=== PATIENT | female | born 2005 | race Caucasian/White ===

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

== ENCOUNTER 2023-05-16 10:45 | Emergency (ER) | payer OTHER, SELFPAY ==
--- NOTE | ~2023-05-16 | US_ITS ---
EXAMINATION:US OB pelvic and transvaginal CLINICAL INFORMATION: Reason for Exam +hcg test, suprapubic cramping COMPARISON: No priors available. LMP: Unknown FINDINGS: UTERUS: The uterus is anteverted. Uterine mass: Intramural uterine mass likely fibroid 2.7 x 2.1 x 2.2 cm. Cervix: Echogenic focus in the cervix to millimeter probably calcification. Endometrium: No ultrasound evidence of endometrial lesion. endometrial thickness measures 0.7 ADNEXA: Normal Right ovary: There is a complex heterogeneously echogenic probably hemorrhagic cyst in the right ovary 2.2 x 2.1 x 2.3 cm, there is a adnexal cyst 1.6 x 1.1 x 1.2 cm. Left ovary: There is a dominant follicle in the left ovary 1.6 x 1.2 x 1.5 cm. Doppler exam: Normal Doppler flow identified in both ovaries. FREE FLUID: Trace amount of free fluid. OTHER FINDINGS: None US/US OB pelvic and transvaginal IMPRESSION: * No intrauterine gestational sac . Although no direct ectopic visualized, Cannot rule out ectopic in the right clinical setting. * Intramural uterine mass likely fibroid 2.7 cm. *Mildly complex cystic structure in the right ovary 2.3 cm might be involuting and/or hemorrhagic cyst. Would recommend correlation with follow-up ultrasound in 6 weeks.
[2023-05-16 11:00] VITALS: BP 127/85; PULSE 83; RESP 18; TEMP 36.4; O2SAT 98; BMI 37.9
[2023-05-16 12:11] LABS: Appearance Urine Clear; Color Urine Yellow; Glucose Urine UA Negative (Negative); Leukocyte Esterase Urine Trace (Negative); Nitrite Urine Negative (Negative); UMIC TRIGGER UACC YES; Urine Blood Negative (Negative); Urine Ketones Negative (Negative); Urine Protein Negative (Neg-Trace)
[2023-05-16 12:13] LABS: Bacteria Urine 2+ (None Seen); Hyaline Casts Urine 0-2 /LPF (0-2); RBC Urine 0-2 /HPF (0-2); UACC Culture Trigger YES
[2023-05-16 12:14] LABS: UPreg QC Valid YES; Urine Pregnancy POSITIVE (NEGATIVE)
[2023-05-16 12:17] LABS: Specific Gravity - Urine >= 1.030 (1.005-1.025)
--- NOTE | 2023-05-16 12:17 | ED_ITS ---
HPI - General Adult General Chief complaint: Abdominal Pain Stated complaint: cramping quest Time Seen by Provider: 05/16/23 11:11 Source: patient and old records reviewed Mode of arrival: ambulatory Limitations: no limitations History of Present Illness HPI narrative: This is a 17-year-old female, , presenting to the emergency department with question for . Patient states that she started to have intermittent lower abdominal cramping and nausea yesterday. She took a test at [facility] which was positive. Patient denies any fevers, chills, vomiting. She admits to having some dysuria as well as urinary urgency and frequency. She has never been before. Denies vaginal discharge or bleeding. No other complaints or concerns at this time. complaint: +At home test Relieving factors: none Exacerbating factors: none Associated symptoms: nausea/vomiting Treatments prior to arrival: none Related Data Previous Rx's Medication Instructions Recorded albuterol sulfate 90 mcg/actuation 2 puff inhalation Q4-6H PRN 08/27/22 aerosol inhaler shortness of breath or wheezing #8.5 grams vit no.95-ferrous 1 tab PO DAILY #30 tabs 05/16/23 fumarate 28 mg-folic acid 800 mcg tablet ( Multivitamins) Allergies Allergy/AdvReac Type Severity Reaction Status Date / Time No Known Allergies Allergy Verified 10/01/22 14:39 Review of Systems Review of Systems: Yes all other systems are reviewed and are negative Constitutional: Constitutional: Reports as per [facility] Past Medical History Attestation statement: The following information was validated with the patient. Social History Social History Current occupational status: unemployed Current occupation: left hand dominant Physical Exam ED Vital Signs: Vital Signs - 24 hr 05/16/23 11:00 Temperature 97.6 F Pulse Rate 83 Respiratory Rate 18 Blood Pressure 127/85 Pulse Oximetry 98 Oxygen Delivery Method Room Air BMI result Body Mass Index 37.9 Const General: cooperative, comfortable and no acute distress Orientation/consciousness: patient oriented x3 Limitations: no limitations HENMT Head: Yes normal to inspection, Yes normocephalic and Yes atraumatic Ears: hearing grossly normal bilaterally General nose exam: Normal external nose present Face and sinus: Yes normal facial exam Mouth: Normal oral and palatal mucosa present, oropharynx normal and moist mucous membranes Throat: Yes posterior oropharynx normal Eyes General: appearance normal, both eyes and all related structures Eyelids: Yes eyelids normal Conjunctivae: conjunctivae normal Sclerae: sclerae normal Pupils: Equal, round and reactive pupils present EOM: EOMs intact bilaterally Neck Neck: Yes normal visual inspection, Yes full ROM and Yes no lymphadenopathy Lymphatic: no lymphadenopathy noted Chest Chest palpation & inspection: normal inspection of the chest Resp Effort & Inspection: normal respiratory effort and able to speak in complete sentences Auscultation: clear to auscultation bilaterally, no crackles, no rales, no rhonchi and no wheezes Cardio Rate: regular rate Rhythm: regular rhythm Heart sounds: S1 normal heart sound present and S2 normal heart sound present GI Other: Abdomen is soft, nontender, nondistended. No rebound or guarding. Inspection: Yes normal to inspection Skin General skin exam: no rashes or lesions noted Trauma: no lacerations or abrasions Wounds: no wounds Neuro General: patient oriented x3 and moves all extremities Cranial nerves: Yes Equal, round and reactive pupils present Extrem General: Yes normal to inspection Right upper extremity: normal to inspection Left upper extremity: normal to inspection Right lower extremity: normal to inspection Left lower extremity: normal to inspection Course Reevaluation(s) Reevaluation #1: Urine hCG was positive. Basic labs and beta quant ordered. Ultrasound to confirm intrauterine ordered. Reevaluation #2: Beta quant is 91, pelvic ultrasound revealing no intra uterine gestational sac. No direct ectopic pregnancies visualize however cannot rule out ectopic in the right clinical setting. Intramural uterine mass likely fibroid 2.7 cm. There is also a mildly complex cystic structure in the right ovary 2.3 cm, suggesting involuting and/or hemorrhagic cyst, recommending follow-up ultrasound in 6 weeks. Discussed case with Dr. Noe OBMIRIAM, who reports that that fragile diagnosis these include early IUP versus ectopic. He recommends repeat hCG in 48 hours and to follow-up in his office then. Patient given spontaneous miscarriage an ectopic warnings to patient and to return to the emergency department with any vaginal bleeding, pelvic or abdominal pain. Discussed with patient at bedside, who reports good understanding. Patient given lab requisition to have blood work of hCG quantitative levels checked in 2 days. Also placed in computer for order. Patient will be following up with doctors Rahul. Advised to call their office on Thursday morning. Patient understands and agrees with plan. Time: 15:28 Medical Decision Making Medical Decision Making MDM Narrative: 17-year-old female presenting to the emergency department for evaluation of positive at home test. She has had suprapubic cramping intermittently. Also endorsing urinary frequency, urgency, and dysuria. Clinical suspicion for /UTI. Patient's abdomen is soft, nontender, nondistended. Plan: UA, urine test Differential Diagnosis Differential Diagnoses: The differential diagnosis associated with the presentation includes , ectopic , appendicitis-un likely urinary tract infection, pyelonephritis Admission/Observation Consideration of admission/observation: Escalation of care including admission/observation considered Patient would have been admitted to the hospital had her work up had any findings where hospital admission was appropriate and her clinical presentation warranted hospital admission. 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 Noe Lab Data [facility] Lab Attestation statement: I reviewed the patient's lab results. See above 05/16/23 12:47 05/16/23 12:47 Labs: Lab Results 05/16/23 05/16/23 05/16/23 Range/Units 12:01 12:01 12:01 WBC (4.8-10.8) X10*3/uL RBC (4.20-5.50) X10*6/uL Hgb (12.0-16.0) g/dl Hct (37.0-47.0) % MCV (80.0-98.0) fL MCH (27.0-33.0) pg MCHC (31.0-35.0) g/dl RDW (11.0-16.0) % Plt Count (160-400) X10*3/uL MPV (9.4-12.3) fL Immature Gran % (Auto) (0.0-0.4) % Neut % (Auto) (45-73) % Lymph % (Auto) (20-40) % Nicholas % (Auto) (2-11) % Eos % (Auto) (0-4) % Baso % (Auto) (0-2) % Lymph # (Auto) (1.2-4.9) X10*3/uL Nicholas # (Auto) (0.1-1.2) X10*3/uL Eos # (Auto) (0.0-0.4) X10*3/uL Baso # (Auto) (0.0-0.2) X10*3/uL Abs Immat Gran (auto) (0.00-0.03) X10*3/uL Absolute Neuts (auto) (2.0-8.3) x10*3/uL Absolute Nucleated RBC (0.0-0.012) X10*3/uL Nucleated RBC % (auto) (0.0-0.2) /100WBC Sodium (135-145) mmol/L Potassium (3.3-5.1) mmol/L Chloride (96-108) mmol/L Carbon Dioxide (22-29) mmol/L Anion Gap (12-20) BUN (9-16) mg/dL Creatinine (0.5-1.4) mg/dL Estim Creat Clear Calc Estimated GFR Random Glucose (60-115) mg/dL Calcium (8.4-10.2) mg/dL Beta HCG, Quant mIU/mL Urine Color Yellow Cancelled Urine Appearance Clear Cancelled Urine pH 6.0 Cancelled (5.0-9.0) Ur Specific [place] >= 1.030 H Cancelled (1.005-1.025) Urine Protein Negative Cancelled (Neg-Trace) mg/dL Urine Glucose (UA) Negative Cancelled (Negative) mg/dL Urine Ketones Negative Cancelled (Negative) mg/dL Urine Blood Negative Cancelled (Negative) Urine Nitrite Negative Cancelled (Negative) Ur Leukocyte Esterase Trace H Cancelled (Negative) Urine RBC 0-2 Cancelled (0-2) /HPF Urine WBC 6-10 H Cancelled (0-5) /HPF Urine WBC Clumps Cancelled Ur Squamous Epith Cells 11-20 Cancelled (0-2) /HPF Ur Transition Epith Cell Cancelled Ur Renal Epithelial Cell Cancelled Calcium Oxalate Crystal Cancelled Leucine Crystals Cancelled Cystine Crystals Cancelled Tyrosine Crystals Cancelled Other Crystals Cancelled Urine Bacteria 2+ Cancelled (None Seen) Urine Parasites Cancelled Bilirubin Casts Cancelled Epithelial Casts Cancelled Fatty Casts Cancelled Hyaline Casts 0-2 Cancelled (0-2) /LPF Granular Casts Cancelled Waxy Casts Cancelled Broad Casts Cancelled RBC Casts Cancelled WBC Casts Cancelled Other Casts Cancelled Urine Trichomonas Cancelled Urine Yeast Cancelled Urine Test POSITIVE H (NEGATIVE) 05/16/23 05/16/23 Range/Units 12:47 12:47 WBC 9.0 (4.8-10.8) X10*3/uL RBC 4.51 (4.20-5.50) X10*6/uL Hgb 13.1 (12.0-16.0) g/dl Hct 38.9 (37.0-47.0) % MCV 86.3 (80.0-98.0) fL MCH 29.0 (27.0-33.0) pg MCHC 33.7 (31.0-35.0) g/dl RDW 12.6 (11.0-16.0) % Plt Count 236 (160-400) X10*3/uL MPV 10.8 (9.4-12.3) fL Immature Gran % (Auto) 0.4 (0.0-0.4) % Neut % (Auto) 76.9 H (45-73) % Lymph % (Auto) 12.9 L (20-40) % Nicholas % (Auto) 6.9 (2-11) % Eos % (Auto) 2.6 (0-4) % Baso % (Auto) 0.3 (0-2) % Lymph # (Auto) 1.2 (1.2-4.9) X10*3/uL Nicholas # (Auto) 0.6 (0.1-1.2) X10*3/uL Eos # (Auto) 0.2 (0.0-0.4) X10*3/uL Baso # (Auto) 0.0 (0.0-0.2) X10*3/uL Abs Immat Gran (auto) 0.04 H (0.00-0.03) X10*3/uL Absolute Neuts (auto) 6.9 (2.0-8.3) x10*3/uL Absolute Nucleated RBC 0.000 (0.0-0.012) X10*3/uL Nucleated RBC % (auto) 0.0 (0.0-0.2) /100WBC Sodium 136 (135-145) mmol/L Potassium 4.1 (3.3-5.1) mmol/L Chloride 106 (96-108) mmol/L Carbon Dioxide 21 L (22-29) mmol/L Anion Gap 13 (12-20) BUN 13 (9-16) mg/dL Creatinine 0.73 (0.5-1.4) mg/dL Estim Creat Clear Calc 137.4 Estimated GFR > 60 Random Glucose 108 (60-115) mg/dL Calcium 9.3 (8.4-10.2) mg/dL Beta HCG, Quant 91 mIU/mL Urine Color Urine Appearance Urine pH (5.0-9.0) Ur Specific [place] (1.005-1.025) Urine Protein (Neg-Trace) mg/dL Urine Glucose (UA) (Negative) mg/dL Urine Ketones (Negative) mg/dL Urine Blood (Negative) Urine Nitrite (Negative) Ur Leukocyte Esterase (Negative) Urine RBC (0-2) /HPF Urine WBC (0-5) /HPF Urine WBC Clumps Ur Squamous Epith Cells (0-2) /HPF Ur Transition Epith Cell Ur Renal Epithelial Cell Calcium Oxalate Crystal Leucine Crystals Cystine Crystals Tyrosine Crystals Other Crystals Urine Bacteria (None Seen) Urine Parasites Bilirubin Casts Epithelial Casts Fatty Casts Hyaline Casts (0-2) /LPF Granular Casts Waxy Casts Broad Casts RBC Casts WBC Casts Other Casts Urine Trichomonas Urine Yeast Urine Test (NEGATIVE) Radiology Impression Discussion of test interpretation with radiology: I have reviewed the radiologist's reading. Radiologist Impression: EXAMINATION:US OB pelvic and transvaginal CLINICAL INFORMATION:? Reason for Exam +hcg test,? suprapubic cramping COMPARISON: No priors available. LMP: Unknown FINDINGS: UTERUS: The uterus is anteverted. Uterine mass: Intramural uterine mass likely fibroid 2.7 x 2.1 x 2.2 cm. Cervix: Echogenic focus in the cervix to millimeter probably calcification. Endometrium: No ultrasound evidence of endometrial lesion. endometrial thickness measures 0.7 ADNEXA: Normal Right ovary: There is a complex heterogeneously echogenic probably hemorrhagic cyst in the right ovary 2.2 x 2.1 x 2.3 cm, there is a adnexal cyst 1.6 x 1.1 x 1.2 cm. Left ovary: There is a dominant follicle in the left ovary 1.6 x 1.2 x 1.5 cm. Doppler exam: Normal Doppler flow identified in both ovaries. FREE FLUID: Trace amount of free fluid. OTHER FINDINGS: None US/US OB pelvic and transvaginal IMPRESSION: * No intrauterine gestational sac . Although no direct ectopic visualized, Cannot rule out ectopic in the right clinical setting. ? * Intramural uterine mass likely fibroid 2.7 cm. ? *Mildly complex cystic structure in the right ovary 2.3 cm might be involuting and/or hemorrhagic cyst. Would recommend correlation with follow-up ultrasound in 6 weeks. Dictated By: Sandy Murillo MD Signed By: <Electronically signed by Sandy Murillo MD in OV> Independent Historian Clinical information obtained from an independent historian. History obtained from or confirmed by: Friend Discharge Plan Discharge Clinical Impression: Patient Disposition: Home, Self-Care Instructions: (ED) Additional Instructions: Your urine test revealed you are . Your blood testing revealed a a beta quantative level of 91. Your ultrasound showed no intrauterine gestational sac. It is unclear whether not you were too early in to have this visualized. Please have your beta quantative level checked in 48 hours. I have placed an order in the computer system to have this done. You can go to the main desk at the [facility]. You do not need to come to the emergency room for this. Please follow-up with ANNIKA Wynn. Call his office on Thursday morning to make an appointment. If any new or worsening symptoms occur including but not limited to severe abdominal pain, fevers or chills, vaginal bleeding or abnormal vaginal discharge, please return for re-evaluation. Please take a vitamin. Prescriptions: New PNV cmb#95-ferrous fumarate-FA [ Multivitamins] 28 mg iron- 800 mcg tablet 1 tab PO DAILY Qty: 30 0RF No Action albuterol sulfate 90 mcg/actuation HFA aerosol inhaler 2 puff inhalation Q4-6H PRN (Reason: shortness of breath or wheezing) Qty: 8.5 0RF Interventions: ED Discharge Assessment Last Done: 05/16/23 16:13 Discharge Date/Time: 05/16/23 16:16
[2023-05-16 12:51] LABS: MANUAL DIFF FLAG NO
[2023-05-16 13:00] LABS: Basophils Percent Auto 0.3 % (0-2); Eosinophils Absolute Auto 0.2 X10*3/uL (0.0-0.4); Eosinophils Percent Auto 2.6 % (0-4); Hematocrit 38.9 % (37.0-47.0); Hemoglobin 13.1 g/dl (12.0-16.0); Imm Gran Abs Auto 0.04 X10*3/uL (0.00-0.03); Imm Gran Pct Auto 0.4 % (0.0-0.4); Lymphocytes Absolute Auto 1.2 X10*3/uL (1.2-4.9); Lymphocytes Percent Auto 12.9 % (20-40); Mean Corpuscular HGB Conc 33.7 g/dl (31.0-35.0); Mean Corpuscular Volume 86.3 fL (80.0-98.0); Mean Platelet Volume 10.8 fL (9.4-12.3); Monocytes Absolute Auto 0.6 X10*3/uL (0.1-1.2); Monocytes Percent Auto 6.9 % (2-11); Neutrophils Absolute Auto 6.9 x10*3/uL (2.0-8.3); Neutrophils Percent Auto 76.9 % (45-73); Platelet Count 236 X10*3/uL (160-400); Red Blood Count 4.51 X10*6/uL (4.20-5.50); Red Cell Distribution Width 12.6 % (11.0-16.0)
[2023-05-16 13:18] LABS: Anion Gap 13 (12-20); Blood Urea Nitrogen 13 mg/dL (9-16); Calcium 9.3 mg/dL (8.4-10.2); Carbon Dioxide 21 mmol/L (22-29); Chloride 106 mmol/L (96-108); Creatinine Clr Calc Pharmacy 137.4; Estimated Glomerular Filt Rate > 60; Glucose Random 108 mg/dL (60-115); Potassium 4.1 mmol/L (3.3-5.1); Sodium 136 mmol/L (135-145)
[2023-05-16 13:19] LABS: HCG Quantitative 91 mIU/mL
[2023-05-16 15:57] VITALS: BP 112/63; PULSE 73; RESP 18; TEMP 37; O2SAT 98
--- NOTE | 2023-05-16 18:13 | PM.GYNCN ---
CONFERENCE CENTER COORDINATOR - CN: HPI Data of Consult Consult date: 05/16/23 Primary Care Provider: None Physician Consult Narrative Narrative: Late entry note I was consulted at 15:25 on Rosie Nogueira who is a 17 year old female , presenting to the emergency department intermittent lower abdominal cramping and nausea yesterday.? The patient had a positive urine test at home yesterday. No associated vaginal bleeding, discharge or vomiting or any other GI or symptoms.? HCG done in the emergency room was 91 cc:: CC: OB [facility] Social History Social History Advance Directives: No Advance Directives Information Provided: No Current occupational status: unemployed Current occupation: left hand dominant Meds Allergies Allergy/AdvReac Type Severity Reaction Status Date / Time No Known Allergies Allergy Verified 10/01/22 14:39 CONFERENCE CENTER COORDINATOR Physical Exam Vitals Vital signs: Temp Pulse Resp BP Pulse Ox O2 Del Method 98.6 F 73 18 112/63 98 Room Air 05/16/23 15:57 05/16/23 15:57 05/16/23 15:57 05/16/23 15:57 05/16/23 15:57 05/16/23 15:57 BMI result Body Mass Index 37.9 Additional Comments: Reported by JABIER Handley in the emergency room as the following: Abdominal exam soft, nontender with stable vital signs CONFERENCE CENTER COORDINATOR - Results Labs 05/16/23 12:47 05/16/23 12:47 Labs: Short CBC 05/16/23 Range/Units 12:47 WBC 9.0 (4.8-10.8) X10*3/uL Hgb 13.1 (12.0-16.0) g/dl Hct 38.9 (37.0-47.0) % Plt Count 236 (160-400) X10*3/uL BMP 05/16/23 12:47 Sodium 136 Potassium 4.1 Chloride 106 Carbon Dioxide 21 L BUN 13 Creatinine 0.73 Calcium 9.3 Urine 05/16/23 05/16/23 05/16/23 Range/Units 12:01 12:01 12:01 Urine Color Yellow Cancelled Urine Appearance Clear Cancelled Urine pH 6.0 Cancelled (5.0-9.0) Ur Specific [place] >= 1.030 H Cancelled (1.005-1.025) Urine Protein Negative Cancelled (Neg-Trace) mg/dL Urine Glucose (UA) Negative Cancelled (Negative) mg/dL Urine Test POSITIVE H (NEGATIVE) Imaging US - abdomen: Radiologist's impression: ITS Impressions Pelvic/Transvag US 05/16/23 13:36 IMPRESSION: * No intrauterine gestational sac . Although no direct ectopic visualized, Cannot rule out ectopic in the right clinical setting. * Intramural uterine mass likely fibroid 2.7 cm. *Mildly complex cystic structure in the right ovary 2.3 cm might be involuting and/or hemorrhagic cyst. Would recommend correlation with follow-up ultrasound in 6 weeks. Assessment and Plan (1) Early stage of : Status: Acute Plan Discussed with Yesi EUGENE the following: Differential diagnosis includes early including IUP , ectopic or SAB. Recommended hCG in 48 hours with outpatient follow-up in our office. Instructions to be given the patient to come back to the emergency room in case of pelvic pain and or vaginal bleeding. SAB/ectopic warnings to be given to the patient. I spent a total of 20 minutes reviewing the chart, communicating to the emergency room provider and documenting in the medical record. Time Spent With Patient Time: Total time managing care of this patient today ____ minutes.
== END 2023-05-16 16:16 | disposition home or self-care (01) ==
PROVIDERS: Physician Assistant Medical; Emergency Provider Emergency Medicine
DX: O26.891 Other specified pregnancy related conditions, first trimester (principal); R10.30 Lower abdominal pain, unspecified; O34.81 Maternal care for other abnormalities of pelvic organs, first trimester; N83.291 Other ovarian cyst, right side; Z3A.01 Less than 8 weeks gestation of pregnancy
CPT/HCPCS: 36415; 76801; 76817; 80048; 81001; 81025; 84702; 85025; 87086; 99283; 99284

== ENCOUNTER → 2023-05-16 11:30 | Outpatient (BNV) | payer OTHER, SELFPAY | PROVIDERS: Emergency Provider Emergency Medicine; Visit Provider Obstetrics & Gynecology | DX: Z34.90 Encounter for supervision of normal pregnancy, unspecified, unspecified trimester (principal) | CPT/HCPCS: 99283 ==

== ENCOUNTER 2023-05-18 13:10 | Outpatient (REF) | payer OTHER, SELFPAY ==
[2023-05-18 15:42] LABS: HCG Quantitative 209 mIU/mL
== END 2023-05-18 13:11 | disposition home or self-care (01) ==
LOC: HO.LAB 13:10
PROVIDERS: Absent Provider Obstetrics & Gynecology; Visit Provider Physician Assistant Medical
DX: Z34.90 Encounter for supervision of normal pregnancy, unspecified, unspecified trimester (principal)
CPT/HCPCS: 36415; 84702

== ENCOUNTER 2023-05-19 07:41 | Outpatient (REF) | payer OTHER, SELFPAY ==
[2023-05-20 11:48] LABS: CT PCR NOT DETECTED (Not Detect.); NG PCR NOT DETECTED (Not Detect.)
== END 2023-05-19 07:42 | disposition home or self-care (01) ==
LOC: HO.LNP 07:41
PROVIDERS: Visit Provider Obstetrics & Gynecology
DX: Z34.90 Encounter for supervision of normal pregnancy, unspecified, unspecified trimester (principal)
CPT/HCPCS: 0353U; 99212

== ENCOUNTER 2023-05-19 07:41 | Outpatient (AMB) | payer OTHER, SELFPAY ==
[2023-05-19 07:50] VITALS: BP 120/82; BMI 33.3
--- NOTE | 2023-05-19 07:50 | A.OFFVIS_ITS ---
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 The patient is doing well with no complaints minimal pelvic cramping and vaginal bleeding. HCG done on 05/16 was 91 went up to 209 on 05/18. Pelvic ultrasound done on 05/16 showed the following: IMPRESSION: * No intrauterine gestational sac . Although no direct ectopic visualized, Cannot rule out ectopic in the right clinical setting. ? * Intramural uterine mass likely fibroid 2.7 cm. ? *Mildly complex cystic structure in the right ovary 2.3 cm might be involuting and/or hemorrhagic cyst. Would recommend correlation with follow-up ultrasound in 6 weeks. FORMERLY [facility], [facility] Medical History Asthma Surgical History H/O eye surgery Family History Mother Diabetes HTN (hypertension) Father Asthma Social History Household Members: Significant Other Household Members Other:: Boyfriend's family Housing: House Alcohol intake: never Patient Tobacco Use Status: Never used Tobacco Current occupational status: unemployed Current occupation: left hand dominant Sexually active: Yes Sexual orientation: Straight/Heterosexual Gender identity: Female Female Reproductive History Menstrual Age of Menarche: 10 Date of last menstrual period: 05/22/23 Review of Systems Const All systems reviewed & are unremarkable except as noted in HPI and below Reports as per HPI and Reports no additional complaints GI Reports no additional complaints Reports no additional complaints Physical Exam Vital Signs: Last Vital Signs BP 120/82 05/19/23 07:50 BMI result Body Mass Index 33.3 Assessment & Plan Assessment & Plan (1) Early stage of : Code(s): Z34.90 - Encounter for supervision of normal , unspecified, unspecified trimester Plan: GC/chlamydia collected. HCG Q 48 hours till it is above 3500 and will order an ultrasound to document intrauterine . SAB/ectopic warnings given to the patient, she is to go to emergency room or call in case pelvic pain and or bleeding. vitamin 1 tablet p.o. q.d. Orders: Orders CT NG by PCR Today Z34.90 - Encounter for supervision of normal , unspecified, unspecified trimester HCG Quantitative Today Z34.90 - Encounter for supervision of normal , unspecified, unspecified trimester HCG Quantitative 05/20/23 Z34.90 - Encounter for supervision of normal , unspecified, unspecified trimester HCG Quantitative 05/22/23 Z34.90 - Encounter for supervision of normal , unspecified, unspecified trimester HCG Quantitative 05/23/23 Z34.90 - Encounter for supervision of normal , unspecified, unspecified trimester US OB <= 14 wk fetus add gest 05/26/23 Z34.90 - Encounter for supervision of normal , unspecified, unspecified trimester Coding Level of Care Code Est Pt Level 3 (49069) Diagnoses Early stage of Z34.90
== END 2023-05-19 08:34 | disposition home or self-care (01) ==
LOC: HO.HWS 07:41
PROVIDERS: Visit Provider Obstetrics & Gynecology
DX: Z34.90 Encounter for supervision of normal pregnancy, unspecified, unspecified trimester (principal)
CPT/HCPCS: 99213

== ENCOUNTER 2023-05-26 12:18 | Outpatient (REF) | payer OTHER, SELFPAY ==
--- NOTE | ~2023-05-26 | US_ITS ---
EXAMINATION: US OBSTETRICAL ULTRASOUND CLINICAL INFORMATION: Supervision of early . COMPARISON: None available. LMP: Uncertain. Gestational age by maternal dates is uncertain. Estimated date of delivery by maternal dates is uncertain. TECHNIQUE: Ultrasound of the maternal pelvis is performed using transabdominal and transvaginal transducers. Transvaginal imaging is performed due to inadequate visualization transabdominally. M-mode Doppler is also performed. FINDINGS: There is a single intrauterine gestational sac with visible yolk sac. There is no pole or cardiac activity. There is no significant subchorionic hemorrhage or hematoma. Mean sac diameter: 0.75 cm (5 weeks and 3 days +/- 4 days). BARBARA (estimated date of delivery): 01/22/2023 +/- 4 days. MATERNAL ADNEXA: The right maternal ovary measures 4.0 x 3.3 x 3.8 cm. The right ovary contains a 2.8 x 2.4 x 2.7 cm hemorrhagic corpus luteum cyst. The left maternal ovary measures 3.2 x 2.3 x 1.7 cm. The left ovary contains a 1.4 cm in maximal diameter benign, simple cyst, which require no imaging follow-up. There is no significant maternal adnexal mass. A 1.6 cm in maximal diameter simple right paraovarian cyst is incidentally noted. No maternal pelvic ascites. US/US OB <= 14 weeks fetus IMPRESSION: 1. Single intrauterine gestational sac with estimated gestational age based upon mean sac diameter of 5 weeks and 3 days +/- 4 days. Yolk sac is seen No pole or heart rate is presently seen. 2. Estimated date of delivery based upon mean sac diameter measurement is 01/22/2023 +/- 4 days. Recommend short-term follow-up obstetrical ultrasound imaging for pole assessment and more accurate dating. 3. No pelvic ascites. 4. A 1.6 cm right paraovarian cyst is noted.
== END 2023-05-26 12:19 | disposition home or self-care (01) ==
LOC: HO.US 12:18
PROVIDERS: Visit Provider Obstetrics & Gynecology
DX: Z34.91 Encounter for supervision of normal pregnancy, unspecified, first trimester (principal); Z3A.01 Less than 8 weeks gestation of pregnancy
CPT/HCPCS: 76801; 99212

== ENCOUNTER 2023-05-26 13:37 | Outpatient (AMB) | payer OTHER, SELFPAY ==
--- NOTE | 2023-05-26 13:40 | A.OFFVIS_ITS ---
Intake Vital Signs 05/26/23 13:41 Height 5 ft 3 in Weight 189 lb BMI 33.5 BP 118/70 Intake Visit Reasons: Ultrasound follow up Human Factors Ergonomist Required: No Allergies No Known Allergies Allergy (Verified 05/26/23 13:42) Post menopausal: No Patient : Yes HPI HPI Comments History of Present Illness Details Presenting for follow-up ultrasound with no complaints no pelvic pain, no pressure or cramping , no vaginal bleeding or any other concerns. On vitamin 1 tablet p.o. q.d. ultrasound done today reports not available, preliminary report shows intrauterine gestational sac measuring 5 weeks and 3 days of gestation, with yolk sac and no fetus. REPLACED BY [facility] Medical History Asthma Surgical History H/O eye surgery Family History Mother Diabetes HTN (hypertension) Father Asthma Social History Household Members: Significant Other Household Members Other:: Boyfriend's family Housing: House Alcohol intake: never Patient Tobacco Use Status: Never used Tobacco Patient : Yes Current occupational status: unemployed Current occupation: left hand dominant Sexual orientation: Straight/Heterosexual Gender identity: Female Female Reproductive History Menstrual Age of Menarche: 10 control method: none Review of Systems Const All systems reviewed & are unremarkable except as noted in HPI and below Reports as per HPI and Reports no additional complaints GI Reports no additional complaints Reports no additional complaints Physical Exam Vital Signs: Last Vital Signs BP 118/70 05/26/23 13:41 BMI result Body Mass Index 33.5 Assessment & Plan Assessment & Plan (1) Early stage of : Code(s): Z34.90 - Encounter for supervision of normal , unspecified, unspecified trimester Plan: Discussed with the patient the finding on ultrasound, will check the ultrasound report when available. SAB warnings given the patient, she is to call or go to emergency room in case of vaginal bleeding and or cramping. All questions answered, the patient verbalized understanding Orders: Orders US OB <= 14 weeks fetus 2 Weeks Z34.90 - Encounter for supervision of normal , unspecified, unspecified trimester Medications: Refilled PNV cmb#95-ferrous fumarate-FA 28 mg iron- 800 mcg ( Multivitamins) 1 tab PO DAILY 90 tabs 3RF Coding Level of Care Code Est Pt Level 3 (84791) Diagnoses Early stage of Z34.90
[2023-05-26 13:41] VITALS: BP 118/70; BMI 33.5
== END 2023-05-26 13:58 | disposition home or self-care (01) ==
LOC: HO.HWS 13:37
PROVIDERS: Visit Provider Obstetrics & Gynecology
DX: Z34.90 Encounter for supervision of normal pregnancy, unspecified, unspecified trimester (principal)
CPT/HCPCS: 99213

== ENCOUNTER 2023-06-09 12:39 | Outpatient (REF) | payer OTHER, SELFPAY ==
--- NOTE | ~2023-06-09 | US_ITS ---
EXAMINATION: US OBSTETRICAL ULTRASOUND CLINICAL INFORMATION: Supervision of early . COMPARISON: Obstetrical ultrasound examinations dated 05/27/2023 and 8523. LMP: Uncertain. Gestational age by maternal dates is uncertain. Estimated date of delivery by maternal dates is uncertain. TECHNIQUE: Ultrasound of the maternal pelvis is performed using transabdominal and transvaginal transducers. Transvaginal imaging is performed due to inadequate visualization transabdominally. M-mode Doppler is also performed. FINDINGS: There is a single intrauterine gestational sac with visible yolk sac, embryo/fetus, and cardiac activity. There is no significant subchorionic hemorrhage or hematoma. HR: 143 beats per minute. CRL (crown rump length): 0.80 cm (6 weeks and 6 days +/- 4 days). BARBARA (estimated date of delivery): 01/27/2024 +/- 4 days. MATERNAL ADNEXA: The right maternal ovary measures 3.2 x 3.1 x 3.3 cm cm. The right ovary contains a 3.0 cm benign, simple cyst, for which no imaging follow-up is recommended. The left maternal ovary measures 2.6 x 1.0 x 2.4 cm. There is no significant maternal adnexal mass. A 1.5 cm left thyroid cyst is redemonstrated. No maternal pelvic ascites. US/US OB <= 14 weeks fetus IMPRESSION: 1. Single intrauterine gestation with ultrasound gestational age of 6 weeks and 6 days +/- 4 days. 2. Estimated date of delivery is 01/26/2023 +/- 4 days. 3. No maternal adnexal mass or pelvic ascites.
== END 2023-06-09 12:40 | disposition home or self-care (01) ==
LOC: HO.US 12:39
PROVIDERS: Visit Provider Obstetrics & Gynecology
DX: Z34.90 Encounter for supervision of normal pregnancy, unspecified, unspecified trimester (principal)
CPT/HCPCS: 76801

== ENCOUNTER 2023-06-12 09:57 | Outpatient (AMB) | payer OTHER, SELFPAY ==
--- NOTE | 2023-06-12 10:00 | MHC.OFFVIS ---
Intake Vital Signs 06/12/23 10:01 Height 5 ft 3 in Weight 195 lb BMI 34.5 BP 122/80 Intake Visit Reasons: Preg Consult/ok per RN Information Technology Instructor Required: No Accompanied by: Significant Other Allergies No Known Allergies Allergy (Verified 06/12/23 10:10) Medication List - Last Reconciled 06/12/23 by Sepideh Cheatham CNM albuterol sulfate 90 mcg/actuation 2 puffs inhalation Q4-6H PRN PNV cmb#95-ferrous fumarate-FA 28 mg iron- 800 mcg ( Multivitamins) 1 tab PO DAILY Is last menstrual period known: Yes Last menstrual period: 05/22/23 Post menopausal: No HPI Preg Consult/ok per RN HPI Details Patient is here with her boyfriend scheduled for a consult visit. She says she sure of her last menstrual period could she write it down and it was 04/21/2023 which would make her 7 weeks and 3 days today with an BARBARA of 01/27/2024. She says she is healthy she does not have any health problems on questioning she says she tries to eat well she says they used to go for some walks but then he has been busy year so they have not been going for as many walks lately. They were trying to get they were together in the past and then split for a while and have been reunited together for the last month and are very happy that they are . She is not working right now she graduated high school from [employer] she did have a job but is looking for another. She lives in [place]. Patient did not volunteer but it develops that she has been here before and saw Dr. Noe because she was seen in the emergency room and had a very early versus ectopic. She was followed with quants and very early ultrasounds and saw Dr. Noe a couple of weeks ago and he ordered a follow-up ultrasound for 2 weeks which happened 2 days ago. That ultrasound was reviewed which showed a 6 week and 6 day embryo on 06/09 which is consistent with previous dating and LMP an BARBARA. Patient says she thought this was the visit with the RN today but this visit is scheduled with me. I had a long conversation with her about how she is feeling in the she denies any toxic habits. She is nauseous but she fights throwing up and thinks she is doing okay with it she would like the vitamin B6 though she does not think she will take the Unisom that I offered her I will send the prescription to her pharmacy they had difficulty with getting her prescription for vitamins covered at [facility] so they are going to switch to [facility]. I also reviewed with her the goals and what happens in care and that it is about various visits and assessments and ultrasounds but it is also about learning about what is going to be happening during the and delivery and would be expected that they will have lots of questions as time goes by as that is normally what happens. They are welcome to come here for care but we do not deliver here so they would be sent to [facility] to deliver. Alternatively she may want to seek out a practice either at [facility] or at [facility] or [facility] for that matter and I gave them a list of all of the practices in the area for them to investigate I told them that the next visit should be in about 2 weeks and if she decides to come here it would be with the RN here and from that point on she would also have blood work and her next ultrasound would be in 6 weeks but all of this should be arranged through what ever practice she ends up going through. I urged her to make that decision about where she they are going to go soon so that they can call and make those appointments appropriately if they are not going to come here. Discussed that we are happy to provide care but if anything was high risk we would transfer but also with the 1st , it sometimes is very valuable to know though entire team of providers who would be involved in her delivery as well. Patient to be seen in 2 weeks with the material checker if they are coming here and if they are going to [facility] to let us know. [facility] Medical History Asthma Surgical History H/O eye surgery Family History Mother Diabetes HTN (hypertension) Father Asthma Social History Household Members: Significant Other Household Members Other:: Boyfriend's family Housing: House Alcohol intake: never Patient Tobacco Use Status: Never used Tobacco Current occupational status: unemployed Current occupation: left hand dominant Sexual orientation: Straight/Heterosexual Gender identity: Female Female Reproductive History Menstrual Age of Menarche: 10 Duration of menses: 3-5 days Date of last menstrual period: 05/22/23 control method: none Total pregnancies: 1 Physical Exam Vital Signs: Last Vital Signs BP 122/80 06/12/23 10:01 BMI result Body Mass Index 34.5 Results AMB Test Urine AMB Test Urine Positive Last Edit by SISSY Mcelroy on 06/12/23 10:15 Results Reviewed Results Reviewed: [address] [address] Ultrasound Report Signed Patient: Rosie Nogueira MR#: [id number] : 2005 Acct:[id number] Age/Sex: 17 / F ADM Date: 06/09/23 Loc: HO.US Attending Dr: Sesar Noe MD Ordering Physician: Sesar Noe MD Date of Service: 06/09/23 Procedure(s): US OB <= 14 weeks fetus Accession Number(s): [id number] cc: Sesar Noe MD~ EXAMINATION:? US OBSTETRICAL ULTRASOUND CLINICAL INFORMATION:? Supervision of early . COMPARISON:? Obstetrical ultrasound examinations dated 05/27/2023 and 56.? LMP: Uncertain. Gestational age by maternal dates is uncertain. Estimated date of delivery by maternal dates is uncertain. TECHNIQUE: Ultrasound of the maternal pelvis is performed using transabdominal and transvaginal transducers. Transvaginal imaging is performed due to inadequate visualization transabdominally. M-mode Doppler is also performed. ? ? FINDINGS: There is a single intrauterine gestational sac with visible yolk sac, embryo/fetus, and cardiac activity.? There is no significant subchorionic hemorrhage or hematoma. HR:? 143 beats per minute. CRL (crown rump length): ? 0.80 cm (6 weeks and 6 days +/- 4 days). BARABRA (estimated date of delivery):? 01/27/2024 +/- 4 days. ? MATERNAL ADNEXA: ? ? The right maternal ovary measures 3.2 x 3.1 x 3.3 cm cm. The right ovary contains a 3.0 cm benign, simple cyst, for which no imaging follow-up is recommended. The left maternal ovary measures 2.6 x 1.0 x 2.4 cm. There is no significant maternal adnexal mass. A 1.5 cm left thyroid cyst is redemonstrated. No maternal pelvic ascites. US/US OB <= 14 weeks fetus IMPRESSION: ? 1. Single intrauterine gestation with ultrasound gestational age of? 6 weeks and 6 days +/- 4 days. ? 2. Estimated date of delivery is 01/26/2023 +/- 4 days. ? 3. No maternal adnexal mass or pelvic ascites. Dictated By: Warner Escamilla MD Signed By: <Electronically signed by Warner Escamilla MD in OV> 06/10/23 1204 DD/ 1304 TD/TT:? Information Technology Auditor: PORSHA Assessment & Plan Assessment & Plan (1) Early stage of : Comment: LMP [id number] and 3 7 seconds consult visit 06/12/2023 BARBARA 01/27/2024. Code(s): Z34.90 - Encounter for supervision of normal , unspecified, unspecified trimester Plan Patient is here with her boyfriend scheduled for a consult visit. She says she sure of her last menstrual period could she write it down and it was 04/21/2023 which would make her 7 weeks and 3 days today with an BARBARA of 01/27/2024. She says she is healthy she does not have any health problems on questioning she says she tries to eat well she says they used to go for some walks but then he has been busy year so they have not been going for as many walks lately. They were trying to get they were together in the past and then split for a while and have been reunited together for the last month and are very happy that they are . She is not working right now she graduated high school from [employer] she did have a job but is looking for another. She lives in [place]. Patient did not volunteer but it develops that she has been here before and saw Dr. Noe because she was seen in the emergency room and had a very early versus ectopic. She was followed with quants and very early ultrasounds and saw Dr. Noe a couple of weeks ago and he ordered a follow-up ultrasound for 2 weeks which happened 2 days ago. That ultrasound was reviewed which showed a 6 week and 6 day embryo on 06/09 which is consistent with previous dating and LMP an BARBARA. Patient says she thought this was the visit with the RN today but this visit is scheduled with me. I had a long conversation with her about how she is feeling in the she denies any toxic habits. She is nauseous but she fights throwing up and thinks she is doing okay with it she would like the vitamin B6 though she does not think she will take the Unisom that I offered her I will send the prescription to her pharmacy they had difficulty with getting her prescription for vitamins covered at [facility] so they are going to switch to [facility]. I also reviewed with her the goals and what happens in care and that it is about various visits and assessments and ultrasounds but it is also about learning about what is going to be happening during the and delivery and would be expected that they will have lots of questions as time goes by as that is normally what happens. They are welcome to come here for care but we do not deliver here so they would be sent to [facility] to deliver. Alternatively she may want to seek out a practice either at [facility] or at [facility] or [facility] for that matter and I gave them a list of all of the practices in the area for them to investigate I told them that the next visit should be in about 2 weeks and if she decides to come here it would be with the RN here and from that point on she would also have blood work and her next ultrasound would be in 6 weeks but all of this should be arranged through what ever practice she ends up going through. I urged her to make that decision about where she they are going to go soon so that they can call and make those appointments appropriately if they are not going to come here. Discussed that we are happy to provide care but if anything was high risk we would transfer but also with the 1st , it sometimes is very valuable to know though entire team of providers who would be involved in her delivery as well. Patient to be seen in 2 weeks with the material checker if they are coming here and if they are going to [facility] to let us know. I also reviewed normal changes in the beginning of the normal nausea and vomiting and how she is handling it which is good and of the possibility of miscarriage which is always there but is not usually related to anything she does or says or feels. Orders: Orders AMB HCG Urine Test Today Z32.01 - Encounter for test, result positive Medications: New pyridoxine (vitamin B6) 25 mg PO TID 90 tabs 0RF doxylamine succinate (Unisom (doxylamine)) 25 mg PO BEDTIME PRN 30 tabs 0RF sleep Coding Level of Care Code Est Pt Level 3 (07210) Diagnoses Early stage of Z34.90
[2023-06-12 10:01] VITALS: BP 122/80; BMI 34.5
== END 2023-06-12 10:43 | disposition home or self-care (01) ==
PROVIDERS: Visit Provider Advanced Practice Midwife
DX: Z32.01 Encounter for pregnancy test, result positive (principal); Z34.90 Encounter for supervision of normal pregnancy, unspecified, unspecified trimester
CPT/HCPCS: 99213

== ENCOUNTER → 2023-06-12 09:57 | Outpatient (BNVA) | payer OTHER, SELFPAY | PROVIDERS: Visit Provider Advanced Practice Midwife | DX: Z34.01 Encounter for supervision of normal first pregnancy, first trimester (principal); Z3A.01 Less than 8 weeks gestation of pregnancy | CPT/HCPCS: 81025; 99212 ==

== ENCOUNTER 2023-07-02 09:58 | Outpatient (AMB) | payer OTHER, SELFPAY ==
--- NOTE | 2023-07-02 10:01 | MHC.OFFVISPN ---
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 Allergies No Known Allergies Allergy (Verified 07/02/23 10:02) Medication List - Last Reconciled 07/02/23 by Nelia Olivares LPN albuterol sulfate 90 mcg/actuation 2 puffs inhalation Q4-6H PRN doxylamine succinate (Unisom (doxylamine)) 25 mg PO BEDTIME PRN PNV cmb#95-ferrous fumarate-FA 28 mg iron- 800 mcg ( Multivitamins) 1 tab PO DAILY pyridoxine (vitamin B6) 25 mg PO TID Is last menstrual period known: Yes Last menstrual period: 04/21/23 Post menopausal: No Patient : Yes Do you need a note to return to daycare/school/sports/work: No PFSH Medical History Asthma Surgical History H/O eye surgery Family History Mother Diabetes HTN (hypertension) Father Asthma Social History Household Members: Significant Other Household Members Other:: Boyfriend's family Housing: House Alcohol intake: never Patient Tobacco Use Status: Never used Tobacco Current occupational status: unemployed Current occupation: left hand dominant Sexual orientation: Straight/Heterosexual Gender identity: Female Female Reproductive History Menstrual Age of Menarche: 10 Duration of menses: 3-5 days Date of last menstrual period: 04/21/23 control method: none Total pregnancies: 1 Full term: 0 Premature: 0 Number of Living Children: 0 Ab induced: 0 Ab spontaneous: 0 Ectopics: 0 Multiple births: 0 History of STI: No History of abnormal mammogram: No History History 1 Elective abortions 0 Para 0 Spontaneous abortions 0 Hx # Term Pregnancies 0 Ectopic pregnancies 0 Hx # Pregnancies 0 Multiple births 0 Education First Trimester Education Checklist Plans/Education - by Trimester Counseled: Yes HIV and other routine tests: discussed Infectious disease exposure: chicken pox immunity discussed, hepatitis risk discussed and tuberculosis exposure discussed Influenza vaccine: discussed Nutrition and weight gain counseling: special diet: discussed Sexual activity: discussed Exercise: discussed Tobacco use: No Alcohol use: No Substance use: No Environmental/home/work hazards: discussed Domestic violence: discussed Travel: discussed Seatbelt use: discussed Toxoplasmosis precautions (cats/raw meat): discussed Childbirth education/discussion: symptoms education/discussion and group B strep education/discussion Risk factors identified by history: discussed Testing education: cystic fibrosis testing education done, sickle cell testing education done, thalassemia testing education done, TB testing education done, amniocentesis discussed and group B strep education danger signs: Yes education packet: Child education class information, symptoms, vitamins and iron, diet and weight gain, fish and mercury intake, listeriosis prevention, caffeine use, eating disorder history, exercise and activity, work issues, sexual activity, x-ray exposure, medication use, toxoplasmosis precautions, sauna/hot tub use, dental care and HIV education and counseling Mental health: discussed Anticipated course of care: discussed Indications for ultrasound: discussed Health center information: nature of practice discussed, personnel described, visit schedule reviewed, no show policy reviewed, ultrasounds policy reviewed, coverage 24 hours a day, participation of father in care and office visits and signs of miscarriage reviewed Questionnaire History History : 1 Visit BARBARA Calculator Estimated Delivery Date Method Current WG Current Estimate 01/27/24 Ultrasound #1 10w 1d Other Estimates 01/26/24 LMP (Certain) 10w 2d Expected Delivery Route/Plan Vaginal delivery Specific Issues/Plans Asthma, FH of diabetes, early 1 hr gtt ordered. FOB born with hole in his heart. OB Visit Log Initial Weight: 85.729 kg Date <del>?</del> EGA Weight Gest Week Fundal Ht Present FHR move Efface % Edema BP PrePreg We Weight GTT <del>?</del> Glucose LV Protein Blood Type 07/02/23 <del>?</del> 10w 1d 86.636 kg (+907.184 g) 86.636 kg <del>?</del> Notes Visit Date: 07/02/23 Last Updated by: Nelia Olivares LPN Rosie is here with her S.O. today for her nurse intake. Pt is a G1 with LMP of 04/21/23 BARBARA 01/27/24. Pt and her partner are very happy with the . Pt does not have alot of information of her parents as they do not have contact. She does know her mom has diabetes, and early 1 hr gtt will be ordered. Pt had some nausea in her , but no vomiting. She reports she is eating and drinking without any problems. She is c/o insomnia and recommended to increase her exercise during the day. Pt is currently unemployed. Discussed healthy food choices, frozen vs canned veggies, increase H20, and decrease sugars. Pt aware she will be delivering and having her u/s at [facility]. Pt aware if she becomes high risk she would need to be transferred to a [facility] practice. Pt verbs understanding. Discussed NT u/s and will be scheduled. [facility] call her with appt. Discussed labs and early 1 hr gtt and UDS. Discussed with pt, how to reach biodiesel process control technician MD after hours. Discussed with and given packet. Pt is scheduled for her OB PE on 07/03/23. Initial Infection History & Risk Profile History of STDs: No HIV risk evaluation: low risk Hepatitis B risk evaluation: low risk Patient or partner has history of Genital Herpes: No Varicella/chicken pox status: unknown Genetic Screening & Vertical Punch Operator Symptoms since LMP: nausea, breast tenderness, fatigue Genetic Screening/Teratology Counseling - Includes patient, baby's father, or anyone in either family with: 1. Patient's age 35 years or older as of estimated date of delivery: No 2. Thalassemia (Somali, Tajik, Mediterranean, or Background); MCV less than 80: No 3. Neural Tube Defect (Meningomyelocele, Spina Bifida, or Anencephaly): No 4. Congenital Heart Defect: Yes (FOB born with hole in heart.) 5. Down Syndrome: No 6. Srikanth-Sachs (Ashkenazi Taoist, Cajun, American Palauan): No 7. Luz Disease (Ashkenazi Taoist): No 8. Familial Dysautonomia (Ashkenazi Taoist): No 9. Sickle Cell Disease or Trait (): No 10. Hemophilia or other blood disorders: No 12. Cystic Fibrosis: No 13. Carlitos's Chorea: No 14. Intellectual disability/Autism: No 15. Other inherited genetic or chromosomal disorder: No 16. Maternal Metabolic Disorder (EG,TYPE 1 Diabetes, PKU): Yes 17. Patient or baby's father had a child with defects not listed above: No 18. Recurrent loss or a stillbirth: No 19. Medications (including supplements, vitamins, herbs or otc drugs)/illicit/recreational drugs/alcohol since last menstrual period: Yes Infection History 1. Live with someone with TB or exposed to TB: No 2. Rash or viral illness since last menstrual period: No 3. Hepatitis B,C: No Other (see comments) Source: [employer] Assessment & Plan Assessment & Plan Orders: Orders Syphilis Screen Today Z. - Encounter for test, result positive Hepatitis B Surface Antigen Today Z. - Encounter for test, result positive Hepatitis C Antibody Today . - Encounter for test, result positive Urine Culture Today Z. - Encounter for test, result positive HIV Ab/Ag Today Z32. - Encounter for test, result positive Drug Screen Urine Today Z32. - Encounter for test, result positive Rubella IgG Antibody Today Z. - Encounter for test, result positive CF Carrier Screen Today Z32. - Encounter for test, result positive Complete Blood Count no Diff Today Z32. - Encounter for test, result positive Varicella IgG Antibody Today Z32. - Encounter for test, result positive Screen Today Z32. - Encounter for test, result positive Glucose 1 Hour PP 50gm Dose Today Z32. - Encounter for test, result positive US OB 1T nuc measure Today Z32. - Encounter for test, result positive Coding Level of Care Code Established Pt Declan Patient Type Established History Problem Focused Exam Problem Focused Medical Decision Making Low Complexity Time Spent (min) 50
[2023-07-02 10:02] VITALS: BMI 33.8
== END 2023-07-02 10:48 | disposition home or self-care (01) ==
PROVIDERS: Visit Provider Advanced Practice Midwife
DX: Z34.90 Encounter for supervision of normal pregnancy, unspecified, unspecified trimester (principal)
CPT/HCPCS: 25942

== ENCOUNTER → 2023-07-02 09:58 | Outpatient (BNVA) | payer OTHER, SELFPAY | PROVIDERS: Visit Provider Advanced Practice Midwife | DX: Z34.01 Encounter for supervision of normal first pregnancy, first trimester (principal); Z3A.10 10 weeks gestation of pregnancy | CPT/HCPCS: 99212 ==

== ENCOUNTER 2023-07-03 10:21 | Outpatient (AMB) | payer OTHER, SELFPAY ==
[2023-07-03 10:33] VITALS: BP 112/68; BMI 35.1
--- NOTE | 2023-07-03 10:33 | A.OFFVISPN_ITS ---
Intake Vital Signs 07/03/23 10:33 Height 5 ft 3 in Weight 198 lb BMI 35.1 BP 112/68 Intake Visit Reasons: Ob/pe Intake Note: no concerns The patient agreed to use of a medical numerical control operator during this encounter. Scribed for JUAN DANIEL Crump by Cassidy Garcia medical numerical control operator, on 07/03/2023 at 11:00 am EST. Ambulatory Care Coordinator Required: No Information Interpreted: non-clinical & clinical Ocean Import Representative: Ocean Import Representative Present (July SHEEHAN) Accompanied by: Self / Same As Patient Allergies No Known Allergies Allergy (Verified 07/03/23 10:34) Patient : Yes PFSH Medical History Encounter for supervision of normal in first trimester Asthma Surgical History H/O eye surgery Family History Mother Diabetes HTN (hypertension) Father Asthma Social History Household Members: Significant Other Household Members Other:: Boyfriend's family Housing: House Alcohol intake: never Patient Tobacco Use Status: Never used Tobacco Current occupational status: unemployed Current occupation: left hand dominant Sexual orientation: Straight/Heterosexual Gender identity: Female Female Reproductive History Menstrual Age of Menarche: 10 Date of last menstrual period: 04/14/23 control method: none Total pregnancies: 1 History History 1 Elective abortions 0 Para 0 Spontaneous abortions 0 Hx # Term Pregnancies 0 Ectopic pregnancies 0 Hx # Pregnancies 0 Multiple births 0 Questionnaire History History : 1 Umbarger Depression Umbarger Depression Scale I have been able to laugh and see the funny side of things: Not at all I have looked forward with enjoyment to things: Rather less than I used to I have blamed myself unnecessarily when things went wrong: Not very often I have been anxious or worried for no reason: Hardly ever I have felt scared of panicky for no very good reason at all: No, not so much Things have been getting on top of me: No, most of the time I have coped quite well I have been so unhappy that I have had difficulty sleeping: Not very often I have felt sad or miserable: Not very often I have been so unhappy that I have been crying: No, never The thought of harming myself has occurred to me: Never 10 Visit BARBARA Calculator Estimated Delivery Date Method Current WG Current Estimate 01/27/24 Ultrasound #1 10w 2d Other Estimates 01/26/24 LMP (Certain) 10w 3d Expected Delivery Route/Plan Vaginal delivery Specific Issues/Plans G 1 EDC: 01/27/24 Blood type: Problem List: 1. mild asthma-seasonal use of inhaler 2. FH DM- early glucose screen 3. teen 4. elevated BMI >35. Primip-BASA protocol at 14 weeks 5. FOB cardiac defect NT: booked for 07/16/23 First trimester screen: FAS: WIC: enrolled-informed of breast feeding education available CBE: informed-[facility], other options Vaccination status: COVID: UTD Tdap: Flu: Social hx: Lives with her partner (Wilbert) his dad, grandparents, aunt, cousin. Unemployed, Wilbert has a car. Labor support: partner plan: control: OB Visit Log Initial Weight: 189 lb Date -?-?-?-?-?-?-?-?-?-?-?-?- EGA Weight Gest Week Fundal Ht Present FHR move Efface % Edema BP PrePreg We Weight GTT -?-?-?-?-?-?-?-?-?-?-?-?- Glucose LV Protein Blood Type 07/02/23 -?-?-?-?-?-?-?-?-?-?-?-?- 10w 1d 191 lb (+2 lb) 191 lb -?-?-?-?-?-?-?-?-?-?-?-?- 07/03/23 -?-?-?-?-?-?-?-?-?-?-?-?- 10w 2d 198 lb (+9 lb) 11 160 112/68 198 lb -?-?-?-?-?-?-?-?-?-?-?-?- Notes Visit Date: 07/03/23 Last Updated by: Cassidy Garcia Note author: Stephanie Banda, SHYANN/Cassidy Garcia medical numerical control operator 10.2 wk CHRISTI. Feeling well. Taking PNV. Hydrating well and good appetite Good FM, no LOF, VB or abd pain. Reports Nucal US 07/16/23. Plans on . Discussed: PTL - LOF, VB, abd pain. Weight gain in Reviewed when to call for any VB. BASA protocol Encouraged patient to sign up for patient portal. Discussed to call the service here for any emergencies/deliveries to be directed to [facility]. Other options for care reviewed. She opts to stay here for care today. RTO 4 wks. Advised to compltete her PN labs today, inclu: glucose screen. All of her questions and concerns were addressed to the best of my ability and shared decision making. She is agreeable to plan of care. Visit Date: 07/02/23 Last Updated by: ZANE Monzon is here with her S.O. today for her nurse intake. Pt is a G1 with LMP of 04/21/23 BARBARA 01/27/24. Pt and her partner are very happy with the . Pt does not have alot of information of her parents as they do not have contact. She does know her mom has diabetes, and early 1 hr gtt will be ordered. Pt had some nausea in her , but no vomiting. She reports she is eating and drinking without any problems. She is c/o insomnia and recommended to increase her exercise during the day. Pt is currently unemployed. Discussed healthy food choices, frozen vs canned veggies, increase H20, and decrease sugars. 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 Pt aware if she becomes high risk she would need to be transferred to a [facility] practice. Pt verbs understanding. Discussed NT u/s and will be scheduled. [facility] call her with appt. Discussed labs and early 1 hr gtt and UDS. Discussed with pt, how to reach instrumentation technician MD after hours. Discussed with and given packet. Pt is scheduled for her OB PE on 07/03/23. Exam Const Constitutional General: cooperative, healthy appearing, no acute distress, well developed and alert Orientation/consciousness: oriented to person, oriented to place, oriented to time and patient oriented x3 HENMT Head: normal to inspection Eyes General: appearance normal, both eyes and all related structures Neck Neck: normal visual inspection Thyroid: Thyroid normal Chest Chest palpation & inspection: normal inspection of the chest Breast/axilla inspection: normal inspection of the breasts Resp Effort & Inspection: normal respiratory effort Auscultation: clear to auscultation bilaterally Cardio Rate: regular rate Rhythm: regular rhythm GI Inspection (GI): normal to inspection Palpation (GI): Soft to palpation General Exam: Yes bladder normal to palpation External Female Exam: normal external appearance and normal appearance of the urethra Urethra: normal appearance of the urethra Speculum exam - vagina: normal appearance of the vagina and normal discharge Bimanual exam- vagina & uterus: normal bimanual exam, uterine size normal, bladder normal to palpation and normal palpation Bimanual Exam- Adnexa, other: normal adnexae and no masses Skin General skin exam: no rashes or lesions noted Neuro General: Yes oriented to person, Yes oriented to place and Yes oriented to time Cognition (Neuro): normal cognition Extrem General: normal to inspection Psych Appearance: grossly normal Thought process: Normal thought process present Assessment & Plan Assessment & Plan (1) Encounter for supervision of normal in first trimester: Code(s): Z34.91 - Encounter for supervision of normal , unspecified, first trimester Category: Medical Medications: New aspirin (Aspirin Childrens) start 2 tabs daily at bedtime. Start at 14-16 weeks and continue daily until 2 weeks 162 mg (2 x 81 mg) PO DAILY 60 tabs 7RF Coding Level of Care Code [place] Diagnoses Encounter for supervision of normal in first trimester Z34.91
== END 2023-07-03 11:16 | disposition home or self-care (01) ==
PROVIDERS: Visit Provider Advanced Practice Midwife
DX: Z34.91 Encounter for supervision of normal pregnancy, unspecified, first trimester (principal)
CPT/HCPCS: 25942; S3005

== ENCOUNTER 2023-07-03 10:21 | Outpatient (REF) | payer OTHER, SELFPAY ==
[2023-07-03 13:31] LABS: Hematocrit 36.2 % (37.0-47.0); Hemoglobin 12.4 g/dl (12.0-16.0); Mean Corpuscular HGB Conc 34.3 g/dl (31.0-35.0); Mean Corpuscular Hemoglobin 29.5 pg (27.0-33.0); Mean Platelet Volume 11.2 fL (9.4-12.3); Platelet Count 205 X10*3/uL (160-400); Red Blood Count 4.21 X10*6/uL (4.20-5.50); Red Cell Distribution Width 12.6 % (11.0-16.0); White Blood Count 8.4 X10*3/uL (4.8-10.8)
[2023-07-03 14:00] LABS: Glucose 1 Hour PP 50gm Dose 151 mg/dL (60-140)
[2023-07-03 14:05] LABS: Amphetamine Screen Urine Not Detected (Not Detect); Barbiturates, Urine Not Detected (Not Detect); Benzodiazepines Screen Urine Not Detected (Not Detect); Cannabinoid Screen Urine Not Detected (Not Detect); Cocaine Screen Urine Not Detected (Not Detect); Fentanyl, urine Not Detected (Not Detect); Opiate Screen Urine Not Detected (Not Detect); Phencyclidine Screen Urine Not Detected (Not Detect)
[2023-07-06 03:27] LABS: Syphilis Screen Nonreactive (Nonreactive)
[2023-07-06 03:37] LABS: HBsAGNum1 0.35 S/CO (0.00-0.99); HIV AB/AG Nonreactive (Nonreactive); HIV Num 1 0.07 S/CO (0.00-0.99); Hepatitis B Surface Antigen Negative (Negative); ~Hepatitis C Antibody Nonreactive (Nonreactive)
[2023-07-06 21:28] LABS: Rubella IgG Antibody 6.25 Index
[2023-07-16 00:07] LABS: CF Ethnicity NG; Cystic Fibrosis NEGATIVE (NEGATIVE)
== END 2023-07-03 10:22 | disposition home or self-care (01) ==
LOC: HO.LAB 10:21
PROVIDERS: Visit Provider Advanced Practice Midwife
DX: Z34.91 Encounter for supervision of normal pregnancy, unspecified, first trimester (principal)
CPT/HCPCS: 80307; 81220; 82950; 85027; 86762; 86780; 86787; 86803; 86850; 86900; 87086; 87340; 87389; 99212

== ENCOUNTER 2023-07-31 11:15 | Outpatient (AMB) | payer OTHER, SELFPAY ==
--- NOTE | 2023-07-31 11:19 | MHC.OFFVISPN ---
Intake Vital Signs 07/31/23 11:23 Height 5 ft 3 in Weight 209 lb BMI 37.0 BP 106/66 Intake Visit Reasons: CHRISTI Intake Note: The patient agreed to use of a infertility medical assistant during this encounter. Scribed for JUAN DANIEL Crump by Cassidy Garcia infertility medical assistant, on 07/31/2023 at 11:30 am EST. Venue Coordinator Required: No Information Interpreted: non-clinical & clinical Accompanied by: Significant Other Allergies No Known Allergies Allergy (Verified 07/31/23 11:25) Patient : Yes PFSH Medical History (Updated 07/31/23 @ 11:30 by Cassidy Garcia) Encounter for supervision of other normal , second trimester Encounter for supervision of normal in first trimester Asthma Surgical History H/O eye surgery Family History Mother Diabetes HTN (hypertension) Father Asthma Social History Household Members: Significant Other Household Members Other:: Boyfriend's family Housing: House Alcohol intake: never Patient Tobacco Use Status: Never used Tobacco Current occupational status: unemployed Current occupation: left hand dominant Sexual orientation: Straight/Heterosexual Gender identity: Female Female Reproductive History Menstrual Age of Menarche: 10 History History 1 Elective abortions 0 Para 0 Spontaneous abortions 0 Hx # Term Pregnancies 0 Ectopic pregnancies 0 Hx # Pregnancies 0 Multiple births 0 Visit BARBARA Calculator Estimated Delivery Date Method Current WG Current Estimate 01/27/24 Ultrasound #1 14w 2d Other Estimates 01/26/24 LMP (Certain) 14w 3d Expected Delivery Route/Plan Vaginal delivery Specific Issues/Plans G 1 EDC: 01/27/24 Blood type: O positive Problem List: 1. mild asthma-seasonal use of inhaler 2. FH DM- early glucose screen 3. teen 4. elevated BMI >35. Primip-BASA protocol at 14 weeks 5. FOB cardiac defect: repaired NT: booked for 07/16/23 First trimester screen: FAS: WIC: enrolled-informed of breast feeding education available CBE: informed-[facility], other options Vaccination status: COVID: UTD Tdap: Flu: advised Social hx: Lives with her partner (Wilbert) his dad, grandparents, aunt, cousin. Unemployed, Wilbert has a car. Labor support: partner plan: control: OB Visit Log Initial Weight: 189 lb Date <del>?</del> EGA Weight Gest Week Fundal Ht Present FHR move Efface % Edema BP PrePreg We Weight GTT <del>?</del> Glucose LV Protein Blood Type 07/02/23 <del>?</del> 10w 1d 191 lb (+2 lb) 191 lb <del>?</del> 07/03/23 <del>?</del> 10w 2d 198 lb (+9 lb) 11 160 112/68 198 lb <del>?</del> 07/31/23 <del>?</del> 14w 2d 209 lb (+20 lb) 14 160 106/66 209 lb <del>?</del> Notes Visit Date: 07/31/23 Last Updated by: Stephanie Banda CNM Note author: Stephanie Banda CNM/[facility] 14.2 wk CHRISTI. Feeling well. Taking PNV. Hydrating well and good appetite Good FM, no LOF, VB or abd pain. Confirmed starting baby Aspirin this week. Reports chest mucus build up, makes her gag, more so in the am. Wilbert in to hear FHR. Partner reports heart defect at 6 months of age, uncertain what was repaired, advised to check w/family and let us know. Discussed: PTL - VB abd pain. Reviewed labs: First screen-negative, and NT report. Stay hydrated well with water or warm liquids to help with mucus build up. OB US ordered for 4-5 weeks. Informed pt she can start baby Aspirin. Flu vaccine and TDaP recommended in later tem. RSV literature information provided. Reviewed when to call for any VB. Discussed to call the service here for any emergencies/deliveries to be directed to [facility]. All of her questions and concerns were addressed to the best of my ability and shared decision making. She is agreeable to plan of care. RTO 4 wks. Visit Date: 07/03/23 Last Updated by: Cassidy Garcia Note author: Stephanie Banda CNM/Cassidy Garcia infertility medical assistant 10.2 wk CHRISTI. Feeling well. Taking PNV. Hydrating well and good appetite Good FM, no LOF, VB or abd pain. Reports Nucal US 07/16/23. Plans on . Discussed: PTL - LOF, VB, abd pain. Weight gain in Reviewed when to call for any VB. BASA protocol Encouraged patient to sign up for patient portal. Discussed to call the service here for any emergencies/deliveries to be directed to [facility]. Other options for care reviewed. She opts to stay here for care today. RTO 4 wks. Advised to compltete her PN labs today, inclu: glucose screen. All of her questions and concerns were addressed to the best of my ability and shared decision making. She is agreeable to plan of care. Visit Date: 07/02/23 Last Updated by: ZANE Monzon is here with her S.O. today for her nurse intake. Pt is a G1 with LMP of 04/21/23 BARBARA 01/27/24. Pt and her partner are very happy with the . Pt does not have alot of information of her parents as they do not have contact. She does know her mom has diabetes, and early 1 hr gtt will be ordered. Pt had some nausea in her , but no vomiting. She reports she is eating and drinking without any problems. She is c/o insomnia and recommended to increase her exercise during the day. Pt is currently unemployed. Discussed healthy food choices, frozen vs canned veggies, increase H20, and decrease sugars. 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 Pt aware if she becomes high risk she would need to be transferred to a [facility] practice. Pt verbs understanding. Discussed NT u/s and will be scheduled. [facility] call her with appt. Discussed labs and early 1 hr gtt and UDS. Discussed with pt, how to reach rehabilitation consultant MD after hours. Discussed with and given packet. Pt is scheduled for her OB PE on 07/03/23. Assessment & Plan Assessment & Plan (1) Encounter for supervision of other normal , second trimester: Code(s): Z34.82 - Encounter for supervision of other normal , second trimester Category: Medical Orders: Orders US OB /maternal detail 08/28/23 Z34.82 - Encounter for supervision of other normal , second trimester Coding Level of Care Code [place] Diagnoses Encounter for supervision of other normal , second trimester Z34.82
[2023-07-31 11:23] VITALS: BP 106/66; BMI 37.0
== END 2023-07-31 11:45 | disposition home or self-care (01) ==
PROVIDERS: Visit Provider Advanced Practice Midwife
DX: Z34.82 Encounter for supervision of other normal pregnancy, second trimester (principal)
CPT/HCPCS: 25942

== ENCOUNTER → 2023-07-31 11:15 | Outpatient (BNVA) | payer OTHER, SELFPAY | PROVIDERS: Visit Provider Advanced Practice Midwife | DX: Z34.01 Encounter for supervision of normal first pregnancy, first trimester (principal); Z3A.14 14 weeks gestation of pregnancy | CPT/HCPCS: 99212 ==

== ENCOUNTER 2023-08-03 20:41 | Emergency (ER) | payer OTHER, SELFPAY ==
--- NOTE | 2023-08-03 20:52 | ED_ITS ---
HPI - General Adult General Chief complaint: Chest Pain Stated complaint: Sob,chest pain Time Seen by Provider: 08/04/23 04:54 Source: patient Mode of arrival: ambulatory Limitations: no limitations History of Present Illness HPI narrative: Patient 4 months with history of chronic sinus problem comes here with nasal congestion for last few started today fever now chest felt slight short of breath does have history of asthma not using any inhaler lately no leg swelling or pain Related Data Previous Rx's Medication Instructions Recorded albuterol sulfate 90 mcg/actuation 2 puff inhalation Q4-6H PRN 08/27/22 aerosol inhaler shortness of breath or wheezing #8.5 grams vit no.95-ferrous 1 tab PO DAILY #90 tabs 05/26/23 fumarate 28 mg-folic acid 800 mcg tablet ( Multivitamins) doxylamine succinate 25 mg tablet 25 mg PO BEDTIME PRN sleep #30 tabs 06/12/23 (Unisom (doxylamine)) pyridoxine (vitamin B6) 25 mg 25 mg PO TID #90 tabs 06/12/23 tablet aspirin 81 mg chewable tablet 162 mg (2 x 81 mg) PO DAILY #60 07/03/23 (Aspirin Childrens) tabs albuterol sulfate 90 mcg/actuation 2 puff inhalation Q4-6H PRN 08/04/23 aerosol inhaler (ProAir HFA) shortness of breath or wheezing #8.5 grams cefuroxime axetil 500 mg tablet 500 mg PO BID 7 days #14 tabs 08/04/23 prednisone 20 mg tablet 40 mg (2 x 20 mg) PO DAILY #10 tabs 08/04/23 Allergies Allergy/AdvReac Type Severity Reaction Status Date / Time No Known Allergies Allergy Verified 07/31/23 11:25 Review of Systems 2 Review of Systems: Yes all other systems are reviewed and are negative PMFSH Past Medical History Medical History Encounter for supervision of other normal , second trimester Encounter for supervision of normal in first trimester Asthma Surgical History H/O eye surgery Family History Family History Mother Diabetes HTN (hypertension) Father Asthma Social History Social History Household Members: Significant Other Household Members Other:: Boyfriend's family Housing: House Alcohol intake: never Patient Tobacco Use Status: Never used Tobacco Smoked in Last 30 Days: No Use of substances other than those prescribed or required for medical reasons: No Advance Directives: No Advance Directives Information Provided: Yes Patient : Yes Current occupational status: unemployed Current occupation: left hand dominant Sexual orientation: Straight/Heterosexual Gender identity: Female Physical Exam ED Vital Signs: Vital Signs - 24 hr 08/03/23 20:54 08/04/23 02:27 08/04/23 02:53 Temperature 98.3 F 98.5 F 98.3 F Pulse Rate 123 H 133 H 134 H Respiratory Rate 18 18 19 Blood Pressure 149/83 H 127/74 125/76 Pulse Oximetry 99 99 99 Oxygen Delivery Method Room Air Room Air Room Air 08/04/23 05:36 Temperature Pulse Rate 121 H Respiratory Rate 21 H Blood Pressure 117/60 Pulse Oximetry 99 Oxygen Delivery Method Room Air BMI result Body Mass Index 37.0 Appearance: Alert. Oriented X3. No acute distress. Eyes: PERRLA, ENT: Pharynx normal. Oral Mucosa moist inflamed turbinates with clear discharge no sinus tenderness slight erythema of the posterior pharynx no cervical adenopathy Neck: Normal inspection. Neck supple. CVS: Normal heart rate and rhythm. Pulses normal. Respiratory: No respiratory distress. Equal air entry bilateral, no wheezing/rales/rhonchi Abdomen: Soft and nontender. Bowel sounds are present, no mass palpable, no CVA tenderness Skin: Skin warm and dry. Normal skin color. Normal skin turgor. Extremities: No lower extremity edema. No calf tenderness Neuro: Oriented X 3. Course Course Course Narrative: RME performed by Savannah Osullivan PA-C. Patient is a 17 year old assigned female at presenting to the emergency department with shortness of breath, chest pain, and a sore throat. Labs, imaging, and swabs ordered. Patient placed back in the waiting room pending room availability and results. Medications Administered Discontinued Medications Generic Name Dose Route Start Last Admin Trade Name Freq PRN Reason Stop Dose Admin Acetaminophen 650 mg 08/04/23 02:29 08/04/23 02:33 Acetaminophen 325 Mg Tablet PO 08/04/23 02:30 650 mg ONCE ONE Administration Sodium Chloride 1,000 mls @ 999 mls/hr 08/04/23 05:04 08/04/23 06:19 Ns IV 08/04/23 06:04 Infused .Q1H1M ONE Infusion Ceftriaxone Sodium 1 gm/ 50 mls @ 100 mls/hr 08/04/23 05:04 08/04/23 06:16 Sodium Chloride IV 08/04/23 05:33 Infused ONCE ONE Infusion Medical Decision Making Medical Decision Making [facility] Narrative: Patient with chronic recurrent rhinitis with history of allergies. Lab workup negative for COVID/ RSV/influenza UA showed wbc's neck elevated WBC count discharge patient on Ceftin advised patient to use in albuterol inhaler Differential Diagnosis Differential Diagnoses: The differential diagnosis associated with the presentation includes COVID/influenza/sinusitis/strep Lab Data [facility] Lab Attestation statement: I reviewed the patient's lab results. 08/03/23 21:50 08/03/23 21:50 Labs: Lab Results 08/03/23 08/04/23 Range/Units 21:50 05:26 WBC 13.9 H (4.8-10.8) X10*3/uL RBC 4.04 L (4.20-5.50) X10*6/uL Hgb 11.9 L (12.0-16.0) g/dl Hct 35.0 L (37.0-47.0) % MCV 86.6 (80.0-98.0) fL MCH 29.5 (27.0-33.0) pg MCHC 34.0 (31.0-35.0) g/dl RDW 12.9 (11.0-16.0) % Plt Count 207 (160-400) X10*3/uL MPV 11.1 (9.4-12.3) fL Immature Gran % (Auto) 0.9 H (0.0-0.4) % Neut % (Auto) 81.6 H (45-73) % Lymph % (Auto) 9.4 L (20-40) % Brule % (Auto) 6.1 (2-11) % Eos % (Auto) 1.8 (0-4) % Baso % (Auto) 0.2 (0-2) % Lymph # (Auto) 1.3 (1.2-4.9) X10*3/uL Brule # (Auto) 0.9 (0.1-1.2) X10*3/uL Eos # (Auto) 0.3 (0.0-0.4) X10*3/uL Baso # (Auto) 0.0 (0.0-0.2) X10*3/uL Abs Immat Gran (auto) 0.12 H (0.00-0.03) X10*3/uL Absolute Neuts (auto) 11.3 H (2.0-8.3) x10*3/uL Absolute Nucleated RBC 0.000 (0.0-0.012) X10*3/uL Nucleated RBC % (auto) 0.0 (0.0-0.2) /100WBC Sodium 138 (135-145) mmol/L Potassium 3.8 (3.3-5.1) mmol/L Chloride 108 (96-108) mmol/L Carbon Dioxide 21 L (22-29) mmol/L Anion Gap 13 (12-20) BUN 7 L (9-16) mg/dL Creatinine 0.62 (0.5-1.4) mg/dL Estim Creat Clear Calc 159.8 Estimated GFR > 60 Random Glucose 134 H (60-115) mg/dL Calcium 9.7 (8.4-10.2) mg/dL Magnesium 1.7 (1.6-2.6) mg/dL Total Bilirubin 0.2 (0.0-1.0) mg/dL AST 25 (5-31) U/L ALT 37 H (0-31) U/L Alkaline Phosphatase 69 (39-117) U/L Troponin I High Sens < 2.7 (<3.5-17.0) ng/L Total Protein 6.7 (6.5-8.0) g/dL Albumin 3.9 (3.5-5.0) g/dL Urine Color Yellow Urine Appearance Clear Urine pH 6.5 (5.0-9.0) Ur Specific [place] 1.020 (1.005-1.025) Urine Protein Negative (Neg-Trace) mg/dL Urine Glucose (UA) Negative (Negative) mg/dL Urine Ketones Negative (Negative) mg/dL Urine Blood Negative (Negative) Urine Nitrite Negative (Negative) Ur Leukocyte Esterase Small (1+) H (Negative) Urine RBC 0-2 (0-2) /HPF Urine WBC 11-20 H (0-5) /HPF Ur Squamous Epith Cells 6-10 (0-2) /HPF Urine Bacteria 4+ (None Seen) Hyaline Casts 0-2 (0-2) /LPF Influenza Type A (PCR) NEGATIVE (Negative) Influenza Type B (PCR) NEGATIVE (Negative) RSV RNA Qual (PCR) NEGATIVE (Negative) SARS-CoV-2 RNA (RT-PCR) NEGATIVE (Negative) S. pyogenes GrpA TANVIR Negative (Negative) Discharge Plan Discharge Clinical Impression: Allergic rhinosinusitis, UTI (urinary tract infection), Patient Disposition: Home, Self-Care Instructions: Allergic Rhinitis (ED), Urinary Tract Infection in (ED), at 15 to 18 Weeks (ED) Additional Instructions: Drink plenty of fluids Medication for infection as prescribed Prednisone 40 mg daily for 5 days Use albuterol inhaler 2 puffs every 4-6 hours as needed Prescriptions: New prednisone 20 mg tablet 40 mg PO DAILY Qty: 10 0RF cefuroxime axetil 500 mg tablet 500 mg PO BID 7 Days Qty: 14 0RF albuterol sulfate [ProAir HFA] 90 mcg/actuation HFA aerosol inhaler 2 puff inhalation Q4-6H PRN (Reason: shortness of breath or wheezing) Qty: 8.5 0RF No Action albuterol sulfate 90 mcg/actuation HFA aerosol inhaler 2 puff inhalation Q4-6H PRN (Reason: shortness of breath or wheezing) Qty: 8.5 0RF PNV cmb#95-ferrous fumarate-FA [ Multivitamins] 28 mg iron- 800 mcg tablet 1 tab PO DAILY Qty: 90 3RF pyridoxine (vitamin B6) 25 mg tablet 25 mg PO TID Qty: 90 0RF Unisom (doxylamine) 25 mg tablet 25 mg PO BEDTIME PRN (Reason: sleep) Qty: 30 0RF aspirin [Aspirin Childrens] 81 mg tablet,chewable 162 mg PO DAILY Qty: 60 7RF Rx Instructions: start 2 tabs daily at bedtime. Start at 14-16 weeks and continue daily until 2 weeks Interventions: ED Discharge Assessment Last Done: 08/04/23 07:39 Discharge Date/Time: 08/04/23 07:39
--- NOTE | 2023-08-03 20:53 | ECG_ITS ---
Test Reason : cp Blood Pressure : / mmHG Vent. Rate : 113 BPM Atrial Rate : 113 BPM P-R Int : 144 ms QRS Dur : 082 ms QT Int : 326 ms P-R-T Axes : 039 002 007 degrees QTc Int : 447 ms Sinus tachycardia Intra-ventricular conduction delay Borderline ECG When compared with ECG of 26-AUG-2022 21:39, No significant change was found Referred By: Savannah Osullivan Electronically Signed By:KEATON JERONIMO MD
[2023-08-03 20:54] VITALS: BP 149/83; PULSE 123; RESP 18; TEMP 36.8; O2SAT 99; BMI 37.0
[2023-08-03 21:57] LABS: MANUAL DIFF FLAG NO
[2023-08-03 22:03] LABS: Basophils Percent Auto 0.2 % (0-2); Eosinophils Absolute Auto 0.3 X10*3/uL (0.0-0.4); Eosinophils Percent Auto 1.8 % (0-4); Hemoglobin 11.9 g/dl (12.0-16.0); Imm Gran Abs Auto 0.12 X10*3/uL (0.00-0.03); Imm Gran Pct Auto 0.9 % (0.0-0.4); Lymphocytes Absolute Auto 1.3 X10*3/uL (1.2-4.9); Lymphocytes Percent Auto 9.4 % (20-40); Mean Corpuscular Hemoglobin 29.5 pg (27.0-33.0); Mean Corpuscular Volume 86.6 fL (80.0-98.0); Mean Platelet Volume 11.1 fL (9.4-12.3); Monocytes Absolute Auto 0.9 X10*3/uL (0.1-1.2); Monocytes Percent Auto 6.1 % (2-11); Neutrophils Absolute Auto 11.3 x10*3/uL (2.0-8.3); Neutrophils Percent Auto 81.6 % (45-73); Platelet Count 207 X10*3/uL (160-400); Red Blood Count 4.04 X10*6/uL (4.20-5.50); Red Cell Distribution Width 12.9 % (11.0-16.0); White Blood Count 13.9 X10*3/uL (4.8-10.8)
[2023-08-03 22:07] LABS: IDNOW Serial# 08D9AD1C; Strep A Nucleic Acid Negative (Negative)
[2023-08-03 22:16] LABS: Alanine Aminotransferase 37 U/L (0-31); Albumin Level 3.9 g/dL (3.5-5.0); Alkaline Phosphatase 69 U/L (39-117); Anion Gap 13 (12-20); Aspartate Amino Transferase 25 U/L (5-31); Bilirubin Total 0.2 mg/dL (0.0-1.0); Blood Urea Nitrogen 7 mg/dL (9-16); Calcium 9.7 mg/dL (8.4-10.2); Carbon Dioxide 21 mmol/L (22-29); Chloride 108 mmol/L (96-108); Creatinine Clr Calc Pharmacy 159.8; Estimated Glomerular Filt Rate > 60; Glucose Random 134 mg/dL (60-115); Magnesium 1.7 mg/dL (1.6-2.6); Potassium 3.8 mmol/L (3.3-5.1); Sodium 138 mmol/L (135-145); Total Protein 6.7 g/dL (6.5-8.0)
[2023-08-03 22:25] LABS: Troponin-I High Sensitivity < 2.7 ng/L (<3.5-17.0)
[2023-08-03 22:36] LABS: Influenza A PCR NEGATIVE (Negative); Influenza B PCR NEGATIVE (Negative); Resp Syncy Virus RNA Qual PCR NEGATIVE (Negative); SARS COV2 PCR INHOUSE NEGATIVE (Negative)
[2023-08-04 02:27] VITALS: BP 127/74; PULSE 133; RESP 18; TEMP 36.9; O2SAT 99
[2023-08-04] MEDS: Acetaminophen 325 MG TABLET 650 MG PO (02:33)
[2023-08-04 02:53] VITALS: BP 125/76; PULSE 134; RESP 19; TEMP 36.8; O2SAT 99
[2023-08-04] MEDS: 0.9 % Sodium Chloride 1,000 ML 999 ML IV (05:16)
[2023-08-04] MEDS: cefTRIAXone sodium 1 GM in 0.9 % Sodium Chloride 50 ML IV (05:20)
[2023-08-04 05:33] LABS: Appearance Urine Clear; Color Urine Yellow; Glucose Urine UA Negative (Negative); Leukocyte Esterase Urine Small (1+) (Negative); Nitrite Urine Negative (Negative); PH 6.5 (5.0-9.0); UMIC TRIGGER UACC YES; Urine Blood Negative (Negative); Urine Ketones Negative (Negative); Urine Protein Negative (Neg-Trace)
[2023-08-04 05:36] VITALS: BP 117/60; PULSE 121; RESP 21; O2SAT 99
[2023-08-04 05:38] LABS: Bacteria Urine 4+ (None Seen); Hyaline Casts Urine 0-2 /LPF (0-2); RBC Urine 0-2 /HPF (0-2); UACC Culture Trigger YES
== END 2023-08-04 07:39 | disposition home or self-care (01) ==
PROVIDERS: Physician Assistant Medical; Emergency Provider Internal Medicine
DX: O26.892 Other specified pregnancy related conditions, second trimester (principal); J30.9 Allergic rhinitis, unspecified; R06.02 Shortness of breath; O23.42 Unspecified infection of urinary tract in pregnancy, second trimester; N39.0 Urinary tract infection, site not specified; Z3A.00 Weeks of gestation of pregnancy not specified; Z79.899 Other long term (current) drug therapy; Z20.822 Contact with and (suspected) exposure to COVID-19; Z20.828 Contact with and (suspected) exposure to other viral communicable diseases
CPT/HCPCS: 0241U; 80053; 81001; 83735; 84484; 85025; 87086; 87651; 93005; 96361; 96374; 99283; 99284; 99285; J0696

== ENCOUNTER 2023-08-28 10:44 | Outpatient (AMB) | payer OTHER, SELFPAY ==
--- NOTE | 2023-08-28 10:52 | A.OFFVISPN_ITS ---
Intake Vital Signs 08/28/23 10:59 Height 5 ft 3 in Weight 214 lb BMI 37.9 BP 102/60 Intake Visit Reasons: CHRISTI Intake Note: The patient agreed to use of a medical office assistant during this encounter. Scribed for JUAN DANIEL Crump by Juani Freire medical office assistant, on 08/28/2023 at 11:15 am EST Wax Molder Required: No Information Interpreted: non-clinical & clinical Accompanied by: Significant Other Allergies No Known Allergies Allergy (Verified 08/28/23 11:00) Patient : Yes PFSH Medical History (Updated 08/28/23 @ 11:21 by Juani Freire) Encounter for supervision of other normal , second trimester Asthma Surgical History H/O eye surgery Family History (Updated 08/28/23 @ 11:12 by Juani Freire) Mother Diabetes HTN (hypertension) Father Asthma Maternal Grandmother Diabetes Bone cancer Social History Household Members: Significant Other Household Members Other:: Boyfriend's family Housing: House Alcohol intake: never Patient Tobacco Use Status: Never used Tobacco Current occupational status: unemployed Current occupation: left hand dominant Sexual orientation: Straight/Heterosexual Gender identity: Female Female Reproductive History Menstrual Age of Menarche: 10 History History 1 Elective abortions 0 Para 0 Spontaneous abortions 0 Hx # Term Pregnancies 0 Ectopic pregnancies 0 Hx # Pregnancies 0 Multiple births 0 Visit BARBARA Calculator Estimated Delivery Date Method Current WG Current Estimate 01/27/24 Ultrasound #1 18w 2d Other Estimates 01/26/24 LMP (Certain) 18w 3d Expected Delivery Route/Plan Vaginal delivery Specific Issues/Plans G 1 EDC: 01/27/24 Blood type: O positive Problem List: 1. mild asthma-seasonal use of inhaler 2. FH DM- early glucose screen, 1mt=137, 3 hr gtt ordered 3. teen 4. elevated BMI >35. Primip-BASA protocol at 14 weeks 5. FOB cardiac defect: repaired NT: booked for 07/16/23 First trimester screen: FAS: WIC: enrolled-informed of breast feeding education available CBE: informed-[facility], other options Vaccination status: COVID: UTD Tdap: Flu: given 08/28/23 Social hx: Lives with her partner (Wilbert) his dad, grandparents, aunt, cousin. Unemployed, Wilbert has a car. Labor support: partner plan: control: OB Visit Log Initial Weight: 189 lb Date -?-?-?-?-?-?-?-?-?-?-?-?- EGA Weight Gest Week Fundal Ht Present FHR move Efface % Edema BP PrePreg We Weight GTT -?-?-?-?-?-?-?-?-?-?-?-?- Glucose LV Protein Blood Type 07/02/23 -?-?-?-?-?-?-?-?-?-?-?-?- 10w 1d 191 lb (+2 lb) 191 lb -?-?-?-?-?-?-?-?-?-?-?-?- 07/03/23 -?-?-?-?-?-?-?-?-?-?-?-?- 10w 2d 198 lb (+9 lb) 11 160 112/68 198 lb -?-?-?-?--?-?-?-?-?-?-?-?- 07/31/23 -?-?-?-?-?-?-?-?-?-?-?-?- 14w 2d 209 lb (+20 lb) 14 160 106/66 209 l b -?-?-?-?-?-?-?-?-?-?-?-?- 08/28/23 -?-?-?-?-?-?-?-?-?-?-?-?- 18w 2d 214 lb (+25 lb) 19 140 102/60 214 lb -?-?-?-?-?-?-?-?-?-?-?-?- Notes Visit Date: 08/28/23 Last Updated by: Stephanie Banda CNM Note author: Stephanie Banda CNM/Juani Freire, medical office assistant 18.2 wk CHRISTI. Taking PNV, BASA qd. Her partner, Wilbert, was present for visit. No quickening yet. Denies LOF, VB or abd pain. Doing well with no concerns. Good appetite and stays well hydrated. Reviewed 1hr gtt-151, Has not done 3hr GTT, did not know she had to do it. FAS not scheduled. ?Wilbert is unsure of what his cardiac defect/repair was for. Advised to check with family members for his history. Discussed: PTL s/s-LOF/ctx?s/VB, when to seek emergent care. discomforts, self help measures. Encouraged a healthy well balanced diet, regular walking/exercise in . Hydrate well, 8-10 glasses of water daily. Counseled on GDM. Instructed to get 3hr GTT done presley. She agrees to get done next week. Will have office staff check on FAS appointment. Flu vaccine today. RTO 4 weeks. Visit Date: 07/31/23 Last Updated by: Stephanie Banda CNM Note author: Stephanie Banda CNM/Cassidy Garcia medical office assistant 14.2 wk CHRISTI. Feeling well. Taking PNV. Hydrating well and good appetite Good FM, no LOF, VB or abd pain. Confirmed starting baby Aspirin this week. Reports chest mucus build up, makes her gag, more so in the am. Wilbert in to hear FHR. Partner reports heart defect at 6 months of age, uncertain what was repaired, advised to check w/family and let us know. Discussed: PTL - VB abd pain. Reviewed labs: First screen-negative, and NT report. Stay hydrated well with water or warm liquids to help with mucus build up. OB US ordered for 4-5 weeks. Informed pt she can start baby Aspirin. Flu vaccine and TDaP recommended in later tem. RSV literature information provided. Reviewed when to call for any VB. Discussed to call the service here for any emergencies/deliveries to be directed to [facility]. All of her questions and concerns were addressed to the best of my ability and shared decision making. She is agreeable to plan of care. RTO 4 wks. Visit Date: 07/03/23 Last Updated by: Cassidy Garcia Note author: Stephanie Banda CNM/Cassidy Garcia medical office assistant 10.2 wk CHRISTI. Feeling well. Taking PNV. Hydrating well and good appetite Good FM, no LOF, VB or abd pain. Reports Nucal US 07/16/23. Plans on . Discussed: PTL - LOF, VB, abd pain. Weight gain in Reviewed when to call for any VB. BASA protocol Encouraged patient to sign up for patient portal. Discussed to call the service here for any emergencies/deliveries to be directed to [facility]. Other options for care reviewed. She opts to stay here for care today. RTO 4 wks. Advised to compltete her PN labs today, inclu: glucose screen. All of her questions and concerns were addressed to the best of my ability and shared decision making. She is agreeable to plan of care. Visit Date: 07/02/23 Last Updated by: Nelia Olivares LPN Rosie is here with her S.O. today for her nurse intake. Pt is a G1 with LMP of 04/21/23 BARBARA 01/27/24. Pt and her partner are very happy with the . Pt does not have alot of information of her parents as they do not have contact. She does know her mom has diabetes, and early 1 hr gtt will be ordered. Pt had some nausea in her , but no vomiting. She reports she is eating and drinking without any problems. She is c/o insomnia and recommended to increase her exercise during the day. Pt is currently unemployed. Discussed healthy food choices, frozen vs canned veggies, increase H20, and decrease sugars. 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 Pt aware if she becomes high risk she would need to be transferred to a [facility] practice. Pt verbs understanding. Discussed NT u/s and will be scheduled. [facility] call her with appt. Discussed labs and early 1 hr gtt and UDS. Discussed with pt, how to reach health concierge MD after hours. Discussed with and given packet. Pt is scheduled for her OB PE on 07/03/23. Office Procedures Flu Questionnaire Does the patient have a severe egg allergy?: No Does the patient have severe life threatening allergies?: No Does the patient have a fever or illness today?: No Has the patient ever had Guillain-[place] Syndrome?: No Has the patient ever had any past reaction to a flu shot?: No Immunizations flu vacc [id number] 6mos up(PF) 60 mcg(15 mcgx4)/0.5 mL IM syringe Performing Provider: Stephanie Banda CNM Performing Location: [facility] Administered by: Dorcas Pringle on 08/28/23 11:24 Dose Route Admin Location Dispensed Lot Number Expiration Date NDC Refrigerator Car Icer 0.5 mL IM Left Deltoid 0.5 mL [id number] 04/10/24 70190-048-20 [employer] VIS Given Date VIS Provided VIS Publication Date 08/28/23 Single Vaccine 21 Eligibility Eligibility Date Funding Source Not [facility] Eligible 08/28/23 Private Assessment & Plan Assessment & Plan (1) Encounter for supervision of other normal , second trimester: Code(s): Z34.82 - Encounter for supervision of other normal , second trimester Category: Medical (2) Abnormal glucose in , antepartum: Code(s): O99.810 - Abnormal glucose complicating Category: Medical Orders: Orders Influenza [id number] Immunization Today Z23 - Encounter for immunization, Z34.82 - Encounter for supervision of other normal , second trimester Coding Level of Care Code [place] Diagnoses Encounter for supervision of other normal , second trimester Z34.82 Abnormal glucose in , antepartum O99.810
[2023-08-28 10:59] VITALS: BP 102/60; BMI 37.9
== END 2023-08-28 11:42 | disposition home or self-care (01) ==
LOC: HO.HWS 10:44
PROVIDERS: Visit Provider Advanced Practice Midwife
DX: Z23 Encounter for immunization (principal); Z34.82 Encounter for supervision of other normal pregnancy, second trimester; O99.810 Abnormal glucose complicating pregnancy
CPT/HCPCS: 25942

== ENCOUNTER → 2023-08-28 10:44 | Outpatient (BNVA) | payer OTHER, SELFPAY | PROVIDERS: Visit Provider Advanced Practice Midwife | DX: O99.810 Abnormal glucose complicating pregnancy (principal); Z23 Encounter for immunization; Z3A.18 18 weeks gestation of pregnancy | CPT/HCPCS: 90471; 90686; 99212 ==

== ENCOUNTER 2023-09-12 12:26 | Emergency (ER) | payer OTHER, SELFPAY ==
[2023-09-12 13:04] VITALS: BP 112/79; PULSE 108; RESP 18; TEMP 36; O2SAT 99; BMI 38.7
--- NOTE | 2023-09-12 13:04 | ED.URI ---
HPI - URI/Sore Throat General Chief Complaint: Upper Respiratory Symptoms Stated Complaint: CP/SOB/Cold symp Time Seen by Provider: 09/12/23 13:37 Source: patient Mode of arrival: ambulatory Limitations: no limitations History of Present Illness HPI Narrative: Patient is a 17-year-old female reports 5 months , BARBARA 01/25/23 presenting to emergency department for evaluation productive cough with small amount of blood flecs in sputum once this morning with non since then, congestion, has discomfort in chest while coughing and feels short of breath only after coughing episodes. She is not having any abdominal pain or genitourinary symptoms, has not yet felt movements. Denies fevers, chills, neck pain, neck stiffness, sore throat, N/V, ABD pain, sx. Her significant other is overall similar symptoms. Related Data Previous Rx's Medication Instructions Recorded albuterol sulfate 90 mcg/actuation 2 puff inhalation Q4-6H PRN 08/27/22 aerosol inhaler shortness of breath or wheezing #8.5 grams vit no.95-ferrous 1 tab PO DAILY #90 tabs 05/26/23 fumarate 28 mg-folic acid 800 mcg tablet ( Multivitamins) doxylamine succinate 25 mg tablet 25 mg PO BEDTIME PRN sleep #30 tabs 06/12/23 (Unisom (doxylamine)) pyridoxine (vitamin B6) 25 mg 25 mg PO TID #90 tabs 06/12/23 tablet aspirin 81 mg chewable tablet 162 mg (2 x 81 mg) PO DAILY #60 07/03/23 (Aspirin Childrens) tabs albuterol sulfate 90 mcg/actuation 2 puff inhalation Q4-6H PRN 08/04/23 aerosol inhaler (ProAir HFA) shortness of breath or wheezing #8.5 grams Allergies Allergy/AdvReac Type Severity Reaction Status Date / Time No Known Allergies Allergy Verified 08/28/23 11:00 Review of Systems Review of Systems: Yes all other systems are reviewed and are negative [facility] Past Medical History Attestation statement: The following information was validated with the patient. Source: old records reviewed Medical History Encounter for supervision of other normal , second trimester Asthma Surgical History H/O eye surgery Family History Family History (Updated 08/28/23 @ 11:12 by Juani Freire) Mother Diabetes HTN (hypertension) Father Asthma Maternal Grandmother Diabetes Bone cancer Social History Social History Household Members: Significant Other Household Members Other:: Boyfriend's family Housing: House Alcohol intake: never Patient Tobacco Use Status: Never used Tobacco Advance Directives: No Advance Directives Information Provided: No Current occupational status: unemployed Current occupation: left hand dominant Sexual orientation: Straight/Heterosexual Gender identity: Female Physical Exam Vital Signs: Vital Signs: Last Vital Signs Temp 96.8 F 09/12/23 13:04 Pulse 108 H 09/12/23 13:04 Resp 18 09/12/23 13:04 BP 112/79 09/12/23 13:04 Pulse Ox 99 09/12/23 13:04 O2 Del Method Room Air 09/12/23 13:04 BMI result Body Mass Index 38.7 Appearance: Alert.?Oriented to person, place and time. No acute distress.?Normal affect. Eyes: Pupils equal, round and reactive to light.? ENT: Pharynx normal.?? Neck: Normal inspection.? Neck supple.?? CVS: Heart sounds normal. Mildly tachycardic? Pulses normal.?? Respiratory: No respiratory distress.? Lung sounds clear to auscultation bilaterally?? Abdomen: Soft and non-tender. Normoactive bowel sounds. No pulsatile mass.?? Skin: Skin warm and dry.? Normal skin color.? Normal skin turgor.?? Extremities: No lower extremity edema.? No calf ttp? Neuro: Moves all extremities spontaneously. Sensation intact bilaterally. CN II-XII intact. No focal neuro deficits. Ambulates with normal steady gait. Medical Decision Making Medical Decision Making MDM Narrative: Patient is a 17-year-old female currently 5 months who is presenting for evaluation of upper respiratory symptoms. COVID-19 is positive today, declines Paxlovid as she is currently At this time history and physical exam not consistent with ACS/pneumonia. Lower suspicion for PE based on history, no prior history of DVT/PE/malignancy spouse is ill with similar symptoms. No meningismus. Well-appearing, nontoxic, afebrile, no tachypnea/hypoxia. Speaking clear full sentences, ambulatory with steady gait. Discussed conservative treatment including rest, hydration, Tylenol as needed for fever and body aches, saline nasal spray, humidifier, warm tea with honey. Advised to follow-up with primary care provider as needed, discussed reasons to return back to the emergency department. All questions were answered. Patient discharged home in stable condition. Differential Diagnosis Differential Diagnoses: The differential diagnosis associated with the presentation includes (As noted above) Lab Data MDM Lab Attestation statement: I reviewed the patient's lab results. (As noted above) Labs: Lab Results 09/12/23 Range/Units 13:12 Influenza Type A (PCR) NEGATIVE (Negative) Influenza Type B (PCR) NEGATIVE (Negative) RSV RNA Qual (PCR) NEGATIVE (Negative) SARS-CoV-2 RNA (RT-PCR) POSITIVE A (Negative) Independent Historian Clinical information obtained from an independent historian. History obtained from or confirmed by: Spouse (Present who confirms history) Tests considered The following testing was considered but not selected: Considered VQ scan, see narrative of for further detail Prescription Management I considered prescription management with: Antibiotic (Likely viral in nature, discharge) Discharge Plan Discharge Clinical Impression: COVID-19 Patient Disposition: Home, Self-Care Instructions: Upper Respiratory Infection (ED) Additional Instructions: Be sure to rest, stay well hydrated drinking plenty of fluids, eat small frequent meals. Tylenol can be used as needed for fever/pain. Saline nasal spray, humidifier may be helpful for nasal congestion. You may return to the emergency department with any new or worsening symptoms or concerns. Follow-up with your primary care provider as needed. Should remain out of school/ work until symptoms have resolved and have been without a fever for 24 hours without the use of Tylenol Prescriptions: No Action albuterol sulfate 90 mcg/actuation HFA aerosol inhaler 2 puff inhalation Q4-6H PRN (Reason: shortness of breath or wheezing) Qty: 8.5 0RF albuterol sulfate [ProAir HFA] 90 mcg/actuation HFA aerosol inhaler 2 puff inhalation Q4-6H PRN (Reason: shortness of breath or wheezing) Qty: 8.5 0RF PNV cmb#95-ferrous fumarate-FA [ Multivitamins] 28 mg iron- 800 mcg tablet 1 tab PO DAILY Qty: 90 3RF pyridoxine (vitamin B6) 25 mg tablet 25 mg PO TID Qty: 90 0RF Unisom (doxylamine) 25 mg tablet 25 mg PO BEDTIME PRN (Reason: sleep) Qty: 30 0RF aspirin [Aspirin Childrens] 81 mg tablet,chewable 162 mg PO DAILY Qty: 60 7RF Rx Instructions: start 2 tabs daily at bedtime. Start at 14-16 weeks and continue daily until 2 weeks Referrals: Physician,None [Primary Care Provider] - Interventions: ED Discharge Assessment Last Done: 09/12/23 13:36 Discharge Date/Time: 09/12/23 13:37
[2023-09-12 13:53] LABS: Influenza A PCR NEGATIVE (Negative); Influenza B PCR NEGATIVE (Negative); Resp Syncy Virus RNA Qual PCR NEGATIVE (Negative); SARS COV2 PCR INHOUSE POSITIVE (Negative)
== END 2023-09-12 13:37 | disposition home or self-care (01) ==
PROVIDERS: Nurse Practitioner Family; Emergency Provider Emergency Medicine
DX: U07.1 COVID-19 (principal)
CPT/HCPCS: 0241U; 99282; 99283

== ENCOUNTER 2023-09-21 08:35 | Outpatient (REF) | payer OTHER, SELFPAY ==
[2023-09-21 10:53] LABS: Glucose Fasting 85 mg/dL (60-99)
[2023-09-21 11:26] LABS: Glucose 1 Hour 151 mg/dL
[2023-09-21 13:30] LABS: Glucose 2 Hour 114 mg/dL
[2023-09-21 14:08] LABS: Glucose 3 Hour 113 mg/dL
== END 2023-09-21 08:36 | disposition home or self-care (01) ==
LOC: HO.LAB 08:35
PROVIDERS: Visit Provider Advanced Practice Midwife
DX: O99.810 Abnormal glucose complicating pregnancy (principal)
CPT/HCPCS: 36415; 82951

== ENCOUNTER 2023-09-25 09:10 | Outpatient (AMB) | payer OTHER, SELFPAY ==
[2023-09-25 09:16] VITALS: BP 110/68; BMI 38.8
--- NOTE | 2023-09-25 09:16 | A.OFFVISPN_ITS ---
Intake Vital Signs 09/25/23 09:16 Height 5 ft 3 in Weight 219 lb BMI 38.8 BP 110/68 Intake Visit Reasons: CHRISTI Credit Compliance Officer Required: No Information Interpreted: non-clinical & clinical Accompanied by: Significant Other Allergies No Known Allergies Allergy (Verified 09/25/23 09:27) Patient : Yes PFSH Medical History Encounter for supervision of other normal , second trimester Asthma Surgical History H/O eye surgery Family History (Updated 08/28/23 @ 11:12 by Juani Freire) Mother Diabetes HTN (hypertension) Father Asthma Maternal Grandmother Diabetes Bone cancer Social History Household Members: Significant Other Household Members Other:: Boyfriend's family Housing: House Alcohol intake: never Patient Tobacco Use Status: Never used Tobacco Current occupational status: unemployed Current occupation: left hand dominant Sexual orientation: Straight/Heterosexual Gender identity: Female Female Reproductive History Menstrual Age of Menarche: 10 History History 1 Elective abortions 0 Para 0 Spontaneous abortions 0 Hx # Term Pregnancies 0 Ectopic pregnancies 0 Hx # Pregnancies 0 Multiple births 0 Visit BARBARA Calculator Estimated Delivery Date Method Current WG Current Estimate 01/27/24 Ultrasound #1 22w 2d Other Estimates 01/26/24 LMP (Certain) 22w 3d Expected Delivery Route/Plan Vaginal delivery Specific Issues/Plans G 1 EDC: 01/27/24 Blood type: O positive Problem List: 1. mild asthma-seasonal use of inhaler 2. FH DM- early glucose screen, 0vf=756, 3 hr gtt ordered 3. teen 4. elevated BMI >35. Primip-BASA protocol at 14 weeks 5. FOB cardiac defect: repaired NT: booked for 07/16/23 First trimester screen: FAS: WIC: enrolled-informed of breast feeding education available CBE: informed-[facility], other options Vaccination status: COVID: UTD Tdap: Flu: given 08/28/23 Social hx: Lives with her partner (Wilbert) his dad, grandparents, aunt, cousin. Unemployed, Wilbert has a car. Labor support: partner plan: control: OB Visit Log Initial Weight: 189 lb Date -?-?-?-?-?-?-?-?-?-?-?-?- EGA Weight Gest Week Fundal Ht Present FHR move Efface % Edema BP PrePreg We Weight GTT -?-?-?-?-?-?-?-?-?-?-?-?- Glucose LV Protein Blood Type 07/02/23 -?-?-?-?-?-?-?-?-?-?-?-?- 10w 1d 191 lb (+2 lb) 191 lb -?-?-?-?-?-?-?-?-?-?-?-?- 07/03/23 -?-?-?-?-?-?-?-?-?-?-?-?- 10w 2d 198 lb (+9 lb) 11 160 112/68 198 lb -?-?-?-?-?-?-?-?-?-?-?-?- 07/31/23 -?-?-?-?-?-?-?-?-?-?-?-?- 14w 2d 209 lb (+20 lb) 14 160 106/66 209 l b -?-?-?-?-?-?-?-?-?-?--?-?- 08/28/23 -?-?-?-?-?-?-?-?-?-?-?-?- 18w 2d 214 lb (+25 lb) 19 140 102/60 214 lb -?-?-?-?-?--?-?-?-?-?-?-?- 09/25/23 -?-?-?-?-?-?-?-?-?-?-?-?- 22w 2d 219 lb (+30 lb) 25 150 110/68 219 lb -?-?-?-?-?-?-?-?-?-?-?-?- Notes Visit Date: 09/25/23 Last Updated by: Stephanie Banda CNM Note author: Stephanie Banda CNM. 22.2wk. CHRISTI. Taking PNV, Doing well with no concerns. Good appetite, stays well hydrated. Denies any LOF, VB, abd. pain or urinary symptoms. No quickening yet. Partner in today's visit. FAS 09/10/23-report not available at visit today. She reports she has a follow-up ultrasound on 10/08 for an EKG on the baby. Staff will reach out to [facility] today to get a copy of the FAS. Reviewed: PTL s/s-LOF/Ctx's/VB, when to seek emergent care. discomforts, self help measures. Encouraged a healthy well balanced diet, regular walking/exercise in . Hydrate well, 8-10 glasses of water daily. Next US 10/08/23 at [facility]. She is interested in transferring to meet the midwives at [facility], initiation of transfer will be started today. RTO 4. Visit Date: 08/28/23 Last Updated by: Stephanie Banda CNM Note author: Stephanie Banda CNM/Juani Freire, medical affairs leader 18.2 wk CHRISTI. Taking PNV, BASA qd. Her partner, Wilbert, was present for visit. No quickening yet. Denies LOF, VB or abd pain. Doing well with no concerns. Good appetite and stays well hydrated. Reviewed 1hr gtt-151, Has not done 3hr GTT, did not know she had to do it. FAS not scheduled. ?Wilbert is unsure of what his cardiac defect/repair was for. Advised to check with family members for his history. Discussed: PTL s/s-LOF/ctx?s/VB, when to seek emergent care. discomforts, self help measures. Encouraged a healthy well balanced diet, regular walking/exercise in . Hydrate well, 8-10 glasses of water daily. Counseled on GDM. Instructed to get 3hr GTT done presley. She agrees to get done next week. Will have office staff check on FAS appointment. Flu vaccine today. RTO 4 weeks. Visit Date: 07/31/23 Last Updated by: Stephanie Banda CNM Note author: Stephanie Banda CNM/Cassidy Garcia medical affairs leader 14.2 wk CHRISTI. Feeling well. Taking PNV. Hydrating well and good appetite Good FM, no LOF, VB or abd pain. Confirmed starting baby Aspirin this week. Reports chest mucus build up, makes her gag, more so in the am. Wilbert in to hear FHR. Partner reports heart defect at 6 months of age, uncertain what was repaired, advised to check w/family and let us know. Discussed: PTL - VB abd pain. Reviewed labs: First screen-negative, and NT report. Stay hydrated well with water or warm liquids to help with mucus build up. OB US ordered for 4-5 weeks. Informed pt she can start baby Aspirin. Flu vaccine and TDaP recommended in later tem. RSV literature information provided. Reviewed when to call for any VB. Discussed to call the service here for any emergencies/deliveries to be directed to [facility]. All of her questions and concerns were addressed to the best of my ability and shared decision making. She is agreeable to plan of care. RTO 4 wks. Visit Date: 07/03/23 Last Updated by: Cassidy Garcia Note author: Stephanie Banda CNM/Cassidy Garcia medical affairs leader 10.2 wk CHRISTI. Feeling well. Taking PNV. Hydrating well and good appetite Good FM, no LOF, VB or abd pain. Reports Nucal US 07/16/23. Plans on . Discussed: PTL - LOF, VB, abd pain. Weight gain in Reviewed when to call for any VB. BASA protocol Encouraged patient to sign up for patient portal. Discussed to call the service here for any emergencies/deliveries to be directed to [facility]. Other options for care reviewed. She opts to stay here for care today. RTO 4 wks. Advised to compltete her PN labs today, inclu: glucose screen. All of her questions and concerns were addressed to the best of my ability and shared decision making. She is agreeable to plan of care. Visit Date: 07/02/23 Last Updated by: Nelia Olivares LPN Rosie is here with her S.O. today for her nurse intake. Pt is a G1 with LMP of 04/21/23 BARBARA 01/27/24. Pt and her partner are very happy with the . Pt does not have alot of information of her parents as they do not have contact. She does know her mom has diabetes, and early 1 hr gtt will be ordered. Pt had some nausea in her , but no vomiting. She reports she is eating and drinking without any problems. She is c/o insomnia and recommended to increase her exercise during the day. Pt is currently unemployed. Discussed healthy food choices, frozen vs canned veggies, increase H20, and decrease sugars. 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 Pt aware if she becomes high risk she would need to be transferred to a [facility] practice. Pt verbs understanding. Discussed NT u/s and will be scheduled. [facility] call her with appt. Discussed labs and early 1 hr gtt and UDS. Discussed with pt, how to reach mechatronics technician MD after hours. Discussed with and given packet. Pt is scheduled for her OB PE on 07/03/23. Coding Level of Care Code Declan
== END 2023-09-25 09:43 | disposition home or self-care (01) ==
PROVIDERS: Visit Provider Advanced Practice Midwife
DX: Z34.90 Encounter for supervision of normal pregnancy, unspecified, unspecified trimester (principal)
CPT/HCPCS: 25942

== ENCOUNTER → 2023-09-25 09:10 | Outpatient (BNVA) | payer OTHER, SELFPAY | PROVIDERS: Visit Provider Advanced Practice Midwife | DX: Z34.02 Encounter for supervision of normal first pregnancy, second trimester (principal); Z3A.22 22 weeks gestation of pregnancy | CPT/HCPCS: 99212 ==

== ENCOUNTER 2023-10-10 05:09 | Emergency (ER) | payer OTHER, SELFPAY ==
[2023-10-10 05:10] VITALS: BP 131/74; PULSE 102; RESP 18; TEMP 36.6; O2SAT 97; BMI 39.8
--- NOTE | 2023-10-10 07:58 | ED_ITS ---
HPI - Ear Problem General Chief complaint: Ear Problems Stated complaint: R earache Time Seen by Provider: 10/10/23 07:31 Source: patient Mode of arrival: ambulatory Limitations: no limitations History of Present Illness HPI Narrative: 17 yo female hx of asthma R ear pain x 2 weeks at times feels blocked especially when she lays on it has post nasal drip at night and hx of allergies, no fevers, no other symptoms MD Complaint: ear pain Location: right ear Duration: intermittent Severity: mild Relieving factors: nothing Exacerbating factors: other (movement of head or laying on ear) Discharge from ear: no Associated symptoms ear: decreased hearing Treatment prior to arrival: none Related Data Previous Rx's Medication Instructions Recorded albuterol sulfate 90 mcg/actuation 2 puff inhalation Q4-6H PRN 08/27/22 aerosol inhaler shortness of breath or wheezing #8.5 grams vit no.95-ferrous 1 tab PO DAILY #90 tabs 05/26/23 fumarate 28 mg-folic acid 800 mcg tablet ( Multivitamins) doxylamine succinate 25 mg tablet 25 mg PO BEDTIME PRN sleep #30 tabs 06/12/23 (Unisom (doxylamine)) pyridoxine (vitamin B6) 25 mg 25 mg PO TID #90 tabs 06/12/23 tablet aspirin 81 mg chewable tablet 162 mg (2 x 81 mg) PO DAILY #60 07/03/23 (Aspirin Childrens) tabs albuterol sulfate 90 mcg/actuation 2 puff inhalation Q4-6H PRN 08/04/23 aerosol inhaler (ProAir HFA) shortness of breath or wheezing #8.5 grams cetirizine 10 mg tablet 10 mg PO DAILY PRN allergy 10/10/23 symptoms #30 tabs fluticasone propionate 50 1 spray intranasal DAILY PRN 10/10/23 mcg/actuation nasal allergy symptoms #16 grams spray,suspension Allergies Allergy/AdvReac Type Severity Reaction Status Date / Time No Known Allergies Allergy Verified 10/10/23 05:12 Review of Systems Review of Systems: Constitutional : No Fever, No Chills ENT/Mouth :no sore throat, pos ear pain Eyes: No Eye Pain, No Swelling Cardiovascular : No Chest Pain, No SOB Respiratory : No Cough, No Sputum Gastrointestinal : No Nausea, No Vomiting, No Diarrhea Genitourinary : No Dysuria Musculoskeletal : No Myalgias Skin : No rash Neuro : No Weakness, No Numbness, No Headache [facility] Past Medical History Source: old records reviewed Medical History Encounter for supervision of other normal , second trimester Asthma Surgical History H/O eye surgery Family History Family History (Updated 08/28/23 @ 11:12 by Juani Freire) Mother Diabetes HTN (hypertension) Father Asthma Maternal Grandmother Diabetes Bone cancer Social History Social History Household Members: Significant Other Household Members Other:: Boyfriend's family Housing: House Alcohol intake: never Patient Tobacco Use Status: Never used Tobacco Advance Directives: No Advance Directives Information Provided: No Current occupational status: unemployed Current occupation: left hand dominant Sexual orientation: Straight/Heterosexual Gender identity: Female Physical Exam Vital Signs: Vital Signs: Last Vital Signs Temp 97.9 F 10/10/23 05:10 Pulse 102 H 10/10/23 05:10 Resp 18 10/10/23 05:10 BP 131/74 10/10/23 05:10 Pulse Ox 97 10/10/23 05:10 O2 Del Method Room Air 10/10/23 05:10 BMI result Body Mass Index 39.8 Appearance: Alert. Oriented X3. No acute distress. Eyes: Pupils equal, round and reactive to light. ENT: Pharynx normal. Boggy bilateral nasal turbinates, R ear no TM perf, clear small serous ear effusion otherwise normal and no signs of infection Neck: Normal inspection. Neck supple. CVS: Normal heart rate and rhythm. Respiratory: No respiratory distress. Breath sounds normal. Abdomen: Soft and nontender. Skin: Skin warm and dry. Normal skin color. Extremities: No lower extremity edema. Neuro: Oriented X 3. No motor deficit. No sensory deficit. Medical Decision Making Medical Decision Making MDM Narrative: 17 yo female here with 2 weeks of ear pain has allergy symptoms ear is not infected has serous effusion boggy turbinates posterior cobblestones at this time will need zyrtec and flonase to help with allergy symptoms and decrease effusion no perforation seen. not toxic, no other symptoms and no systemic signs Differential Diagnosis Differential Diagnoses: The differential diagnosis associated with the pr esentation includes allergies, AOM Independent Historian Clinical information obtained from an independent historian. History obtained from or confirmed by: Spouse Prescription Management I considered prescription management with: Other Discharge Plan Discharge Clinical Impression: Allergic rhinitis Qualifiers: Allergic rhinitis trigger: unspecified Allergic rhinitis seasonality: unspecified Qualified Code(s): J30.9 - Allergic rhinitis, unspecified Patient Disposition: Home, Self-Care Instructions: Allergic Rhinitis (ED) Additional Instructions: take medications as needed but for at least the first two weeks to see if this improves your symptoms. return for worsenign pain fevers or any other concerns. Prescriptions: New cetirizine 10 mg tablet 10 mg PO DAILY PRN (Reason: allergy symptoms) Qty: 30 0RF fluticasone propionate 50 mcg/actuation spray,suspension 1 spray intranasal DAILY PRN (Reason: allergy symptoms) Qty: 16 1RF Rx Instructions: administer into each nostril No Action albuterol sulfate 90 mcg/actuation HFA aerosol inhaler 2 puff inhalation Q4-6H PRN (Reason: shortness of breath or wheezing) Qty: 8.5 0RF albuterol sulfate [ProAir HFA] 90 mcg/actuation HFA aerosol inhaler 2 puff inhalation Q4-6H PRN (Reason: shortness of breath or wheezing) Qty: 8.5 0RF PNV cmb#95-ferrous fumarate-FA [ Multivitamins] 28 mg iron- 800 mcg tablet 1 tab PO DAILY Qty: 90 3RF pyridoxine (vitamin B6) 25 mg tablet 25 mg PO TID Qty: 90 0RF Unisom (doxylamine) 25 mg tablet 25 mg PO BEDTIME PRN (Reason: sleep) Qty: 30 0RF aspirin [Aspirin Childrens] 81 mg tablet,chewable 162 mg PO DAILY Qty: 60 7RF Rx Instructions: start 2 tabs daily at bedtime. Start at 14-16 weeks and continue daily until 2 weeks Stand Alone Forms: Work/School Release
== END 2023-10-10 08:07 | disposition home or self-care (01) ==
PROVIDERS: Emergency Provider Emergency Medicine
DX: J30.9 Allergic rhinitis, unspecified (principal); H92.01 Otalgia, right ear; Z79.899 Other long term (current) drug therapy
CPT/HCPCS: 99282; 99283

== ENCOUNTER 2023-10-23 08:25 | Outpatient (AMB) | payer OTHER, SELFPAY ==
--- NOTE | 2023-10-23 08:26 | A.OFFVISPN_ITS ---
Intake Vital Signs 10/23/23 08:30 Height 5 ft 3 in Weight 228 lb BMI 40.4 BP 106/62 Intake Visit Reasons: CHRISTI Expander Required: No Information Interpreted: non-clinical & clinical Accompanied by: Self / Same As Patient Allergies No Known Allergies Allergy (Verified 10/23/23 08:31) Patient : Yes PFSH Medical History Encounter for supervision of other normal , second trimester Asthma Surgical History H/O eye surgery Family History (Updated 08/28/23 @ 11:12 by Juani Freire) Mother Diabetes HTN (hypertension) Father Asthma Maternal Grandmother Diabetes Bone cancer Social History Household Members: Significant Other Household Members Other:: Boyfriend's family Housing: House Alcohol intake: never Patient Tobacco Use Status: Never used Tobacco Patient : Yes Current occupational status: unemployed Current occupation: left hand dominant Sexual orientation: Straight/Heterosexual Gender identity: Female Female Reproductive History Menstrual Age of Menarche: 10 History History 1 Elective abortions 0 Para 0 Spontaneous abortions 0 Hx # Term Pregnancies 0 Ectopic pregnancies 0 Hx # Pregnancies 0 Multiple births 0 Visit BARBARA Calculator Estimated Delivery Date Method Current WG Current Estimate 01/27/24 Ultrasound #1 26w 2d Other Estimates 01/26/24 LMP (Certain) 26w 3d Expected Delivery Route/Plan Vaginal delivery Specific Issues/Plans G 1 EDC: 01/27/24 Blood type: O positive Problem List: 1. mild asthma-seasonal use of inhaler 2. FH DM- early glucose screen, 8cx=110, 3 hr gtt ordered 3. teen 4. elevated BMI >35. Primip-BASA protocol at 14 weeks 5. FOB cardiac defect: repaired NT: booked for 07/16/23 First trimester screen: FAS:nl, Echo: normal 10/08/23 WIC: enrolled-informed of breast feeding education available CBE: informed-[facility], other options Vaccination status: COVID: UTD Tdap: Flu: given 08/28/23 Social hx: Lives with her partner (Wilbert) his dad, grandparents, aunt, cousin. Unemployed, Wilbert has a car. Labor support: partner plan: control: OB Visit Log Initial Weight: 189 lb Date -?-?-?-?-?-?-?-?-?-?-?-?- EGA Weight Gest Week Fundal Ht Present FHR move Efface % Edema BP PrePreg We Weight GTT -?-?-?-?-?-?-?-?-?-?-?-?- Glucose LV Protein Blood Type 07/02/23 -?-?-?-?-?-?-?-?-?-?-?-?- 10w 1d 191 lb (+2 lb) 191 lb -?-?-?-?-?-?-?-?-?-?-?-?- 07/03/23 -?-?-?-?-?-?-?-?-?-?-?-?- 10w 2d 198 lb (+9 lb) 11 160 112/68 198 lb -?-?-?-?-?-?-?-?-?-?-?-?- 07/31/23 -?-?-?-?-?-?-?-?-?-?-?-?- 14w 2d 209 lb (+20 lb) 14 160 106/66 209 l b -?-?-?-?-?-?-?-?-?-?-?-?- 08/28/23 -?-?-?-?-?-?-?-?-?-?-?-?- 18w 2d 214 lb (+25 lb) 19 140 102/60 214 lb -?-?-?-?-?-?-?-?-?-?-?-?- 09/25/23 -?-?-?-?-?-?-?-?-?-?-?-?- 22w 2d 219 lb (+30 lb) 25 150 110/68 219 lb -?-?-?-?-?-?-?-?-?-?-?-?- 10/23/23 -?-?-?-?-?-?-?-?-?-?-?-?- 26w 2d 228 lb (+39 lb) 28 150 106/62 228 lb -?-?-?-?-?-?-?-?-?-?-?-?- Notes Visit Date: 10/23/23 Last Updated by: Stephanie Banda CNM Note author: Stephanie Banda CNM. 26.2wk. CHRISTI. Taking PNV, Denies any LOF, VB, abd. pain or urinary symptoms. Good FM. Transferred care to [facility] on 10/20/23-intake that day. Plans to have 3hr gtt there. C/o heartburn. n/v. randomly. C/o ear pressure, see in ED and was started on allergy meds, advised to follow up with her PCP for this. Reviewed: PTL s/s-LOF/Ctx's/VB, when to seek emergent care. Rx Pepcid Pt. reported appt. at [facility] during visit. RTO 2wks-at [facility], not here, no dual care. Visit Date: 09/25/23 Last Updated by: Stephanie Banda CNM Note author: Stephanie Banda CNM. 22.2wk. CHRISTI. Taking PNV, Doing well with no concerns. Good appetite, stays well hydrated. Denies any LOF, VB, abd. pain or urinary symptoms. No quickening yet. Partner in today's visit. FAS 09/10/23-report not available at visit today. She reports she has a follow-up ultrasound on 10/08 for an EKG on the baby. Staff will reach out to [facility] today to get a copy of the FAS. Reviewed: PTL s/s-LOF/Ctx's/VB, when to seek emergent care. discomforts, self help measures. Encouraged a healthy well balanced diet, regular walking/exercise in . Hydrate well, 8-10 glasses of water daily. Next US 10/08/23 at [facility]. She is interested in transferring to meet the midwives at [facility], initiation of transfer will be started today. RTO 4. Visit Date: 08/28/23 Last Updated by: Stephanie Banda CNM Note author: Stephanie Banda CNM/Juani Freire, medical device assembler 18.2 wk CHRISTI. Taking PNV, BASA qd. Her partner, Wilbert, was present for visit. No quickening yet. Denies LOF, VB or abd pain. Doing well with no concerns. Good appetite and stays well hydrated. Reviewed 1hr gtt-151, Has not done 3hr GTT, did not know she had to do it. FAS not scheduled. ?Wilbert is unsure of what his cardiac defect/repair was for. Advised to check with family members for his history. Discussed: PTL s/s-LOF/ctx?s/VB, when to seek emergent care. discomforts, self help measures. Encouraged a healthy well balanced diet, regular walking/exercise in . Hydrate well, 8-10 glasses of water daily. Counseled on GDM. Instructed to get 3hr GTT done presley. She agrees to get done next week. Will have office staff check on FAS appointment. Flu vaccine today. RTO 4 weeks. Visit Date: 07/31/23 Last Updated by: Stephanie Banda CNM Note author: Stephanie Banda CNM/Cassidy Garcia medical device assembler 14.2 wk CHRISTI. Feeling well. Taking PNV. Hydrating well and good appetite Good FM, no LOF, VB or abd pain. Confirmed starting baby Aspirin this week. Reports chest mucus build up, makes her gag, more so in the am. Wilbert in to hear FHR. Partner reports heart defect at 6 months of age, uncertain what was repaired, advised to check w/family and let us know. Discussed: PTL - VB abd pain. Reviewed labs: First screen-negative, and NT report. Stay hydrated well with water or warm liquids to help with mucus build up. OB US ordered for 4-5 weeks. Informed pt she can start baby Aspirin. Flu vaccine and TDaP recommended in later tem. RSV literature information provided. Reviewed when to call for any VB. Discussed to call the service here for any emergencies/deliveries to be directed to [facility]. All of her questions and concerns were addressed to the best of my ability and shared decision making. She is agreeable to plan of care. RTO 4 wks. Visit Date: 07/03/23 Last Updated by: Cassidy Garcia Note author: Stephanie Banda CNM/Cassidy Garcia medical device assembler 10.2 wk CHRISTI. Feeling well. Taking PNV. Hydrating well and good appetite Good FM, no LOF, VB or abd pain. Reports Nucal US 07/16/23. Plans on . Discussed: PTL - LOF, VB, abd pain. Weight gain in Reviewed when to call for any VB. BASA protocol Encouraged patient to sign up for patient portal. Discussed to call the service here for any emergencies/deliveries to be directed to [facility]. Other options for care reviewed. She opts to stay here for care today. RTO 4 wks. Advised to compltete her PN labs today, inclu: glucose screen. All of her questions and concerns were addressed to the best of my ability and shared decision making. She is agreeable to plan of care. Visit Date: 07/02/23 Last Updated by: Nelia Olivares LPN Rosie is here with her S.O. today for her nurse intake. Pt is a G1 with LMP of 04/21/23 BARBARA 01/27/24. Pt and her partner are very happy with the . Pt does not have alot of information of her parents as they do not have contact. She does know her mom has diabetes, and early 1 hr gtt will be ordered. Pt had some nausea in her , but no vomiting. She reports she is eating and drinking without any problems. She is c/o insomnia and recommended to increase her exercise during the day. Pt is currently unemployed. Discussed healthy food choices, frozen vs canned veggies, increase H20, and decrease sugars. 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 Pt aware if she becomes high risk she would need to be transferred to a [facility] practice. Pt verbs understanding. Discussed NT u/s and will be scheduled. [facility] call her with appt. Discussed labs and early 1 hr gtt and UDS. Discussed with pt, how to reach sales support consultant MD after hours. Discussed with and given packet. Pt is scheduled for her OB PE on 07/03/23. Coding Level of Care Code [place] Assessment & Plan Assessment & Plan Medications: New famotidine (Pepcid AC) 10 mg PO BID 90 days PRN 180 tabs 1RF heartburn
[2023-10-23 08:30] VITALS: BP 106/62; BMI 40.4
== END 2023-10-23 09:15 | disposition home or self-care (01) ==
LOC: HO.HWS 08:25
PROVIDERS: Visit Provider Advanced Practice Midwife
DX: Z34.90 Encounter for supervision of normal pregnancy, unspecified, unspecified trimester (principal)
CPT/HCPCS: 25942; 59425

== ENCOUNTER → 2023-10-23 08:25 | Outpatient (BNVA) | payer OTHER, SELFPAY | PROVIDERS: Visit Provider Advanced Practice Midwife | DX: Z34.02 Encounter for supervision of normal first pregnancy, second trimester (principal) | CPT/HCPCS: 99212 ==

== ENCOUNTER 2024-02-27 00:09 | Emergency (ER) | payer OTHER, SELFPAY ==
[2024-02-27 00:11] VITALS: BP 149/71; PULSE 96; RESP 18; TEMP 36.6; O2SAT 99; BMI 39.2
--- NOTE | 2024-02-27 01:19 | ED.ABDPAIN ---
HPI - Abdominal Pain General Chief Complaint: Abdominal Pain Stated Complaint: moving freezer, something in abd popped/painful Time Seen by Provider: 02/27/24 01:19 Source: patient Mode of arrival: ambulatory Limitations: no limitations History of Present Illness HPI narrative: Patient apparently was moving a freezer about an hour prior to arrival noticed sharp pain in the umbilical area with notable lump no vomiting no history of hernia in the past Related Data Previous Rx's ?Medication ?Instructions ?Recorded albuterol sulfate 90 mcg/actuation 2 puff inhalation Q4-6H PRN 08/27/22 aerosol inhaler shortness of breath or wheezing #8.5 grams vit no.95-ferrous 1 tab PO DAILY #90 tabs 05/26/23 fumarate 28 mg-folic acid 800 mcg tablet ( Multivitamins) doxylamine succinate 25 mg tablet 25 mg PO BEDTIME PRN sleep #30 tabs 06/12/23 (Unisom (doxylamine)) pyridoxine (vitamin B6) 25 mg 25 mg PO TID #90 tabs 06/12/23 tablet aspirin 81 mg chewable tablet 162 mg (2 x 81 mg) PO DAILY #60 07/03/23 (Aspirin Childrens) tabs albuterol sulfate 90 mcg/actuation 2 puff inhalation Q4-6H PRN 08/04/23 aerosol inhaler (ProAir HFA) shortness of breath or wheezing #8.5 grams cetirizine 10 mg tablet 10 mg PO DAILY PRN allergy 10/10/23 symptoms #30 tabs fluticasone propionate 50 1 spray intranasal DAILY PRN 10/10/23 mcg/actuation nasal allergy symptoms #16 grams spray,suspension famotidine 10 mg tablet (Pepcid AC) 10 mg PO BID PRN heartburn 90 days 10/23/23 #180 tabs Allergies Allergy/AdvReac Type Severity Reaction Status Date / Time No Known Allergies Allergy Verified 02/27/24 00:12 Review of Systems Review of Systems Yes all other systems are reviewed and are negative PMFSH Past Medical History Medical History Encounter for supervision of other normal , second trimester Asthma Surgical History H/O eye surgery Family History Family History Mother Diabetes HTN (hypertension) Father Asthma Maternal Grandmother Diabetes Bone cancer Social History Social History Household Members: Significant Other Household Members Other:: Boyfriend's family Housing: House Alcohol intake: never Patient Tobacco Use Status: Never used Tobacco Advance Directives: No Advance Directives Information Provided: Yes Do you have a plan to hurt others: No Plan Current occupational status: unemployed Current occupation: left hand dominant Sexual orientation: Straight/Heterosexual Gender identity: Female Physical Exam ED Vital Signs: Vital Signs - 24 hr 02/27/24 00:11 Temperature 97.8 F Pulse Rate 96 Respiratory Rate 18 Blood Pressure 149/71 H Pulse Oximetry 99 Oxygen Delivery Method Room Air BMI result Body Mass Index 39.2 Appearance: Alert. Oriented X3. No acute distress. Neck: Normal inspection. Neck supple. CVS: Normal heart rate and rhythm. Pulses normal. Respiratory: No respiratory distress. Equal air entry bilateral, Abdomen: Soft and nontender. Bowel sounds are present, small 1 cm soft tissue lump to the umbilical area which is reducible no significant tenderness, no CVA tenderness Skin: Skin warm and dry. Normal skin color. Normal skin turgor. Extremities: No lower extremity edema. No calf tenderness Neuro: Oriented X 3. Medical Decision Making Medical Decision Making MDM Narrative: Patient clinically with reducible umbilical hernia which use the no signs of strangulation/incarceration patient advised to straining Discharge Plan Discharge Clinical Impression: Reducible umbilical hernia Patient Disposition: Home, Self-Care Instructions: Umbilical Hernia (ED) Additional Instructions: Avoid straining Report to the ER if worsening of the swelling/pain/vomiting You have a small umbilical hernia containing fat which has been reduced Prescriptions: No Action albuterol sulfate 90 mcg/actuation HFA aerosol inhaler 2 puff inhalation Q4-6H PRN (Reason: shortness of breath or wheezing) Qty: 8.5 0RF albuterol sulfate [ProAir HFA] 90 mcg/actuation HFA aerosol inhaler 2 puff inhalation Q4-6H PRN (Reason: shortness of breath or wheezing) Qty: 8.5 0RF cetirizine 10 mg tablet 10 mg PO DAILY PRN (Reason: allergy symptoms) Qty: 30 0RF fluticasone propionate 50 mcg/actuation spray,suspension 1 spray intranasal DAILY PRN (Reason: allergy symptoms) Qty: 16 1RF Rx Instructions: administer into each nostril PN cmb#95-ferrous fumarate-FA [ Multivitamins] 28 mg iron- 800 mcg tablet 1 tab PO DAILY Qty: 90 3RF pyridoxine (vitamin B6) 25 mg tablet 25 mg PO TID Qty: 90 0RF Unisom (doxylamine) 25 mg tablet 25 mg PO BEDTIME PRN (Reason: sleep) Qty: 30 0RF famotidine [Pepcid AC] 10 mg tablet 10 mg PO BID PRN (Reason: heartburn) 90 Days Qty: 180 1RF aspirin [Aspirin Childrens] 81 mg tablet,chewable 162 mg PO DAILY Qty: 60 7RF Rx Instructions: start 2 tabs daily at bedtime. Start at 14-16 weeks and continue daily until 2 weeks Print Language: [place] Island[place]
[2024-02-27 01:43] VITALS: BP 149/71; PULSE 96; RESP 18; TEMP 36.6; O2SAT 99
== END 2024-02-27 01:51 | disposition home or self-care (01) ==
PROVIDERS: Emergency Provider Internal Medicine
DX: K42.9 Umbilical hernia without obstruction or gangrene (principal); R10.33 Periumbilical pain
CPT/HCPCS: 99282

== ENCOUNTER 2024-03-02 00:08 | Emergency (ER) | payer OTHER, SELFPAY ==
[2024-03-02 00:12] VITALS: BP 138/82; PULSE 88; O2SAT 96
[2024-03-02 00:50] VITALS: BP 117/67; PULSE 86; RESP 20; TEMP 36.2; O2SAT 99; BMI 38.7
[2024-03-02 04:59] VITALS: BP 147/83; PULSE 80; RESP 16; TEMP 36.2; O2SAT 98
--- NOTE | 2024-03-02 07:08 | ED.GENADULT ---
HPI - General Adult General Chief complaint: General Medical Stated complaint: ruptured hernia? Time Seen by Provider: 03/02/24 07:03 Source: patient Mode of arrival: ambulatory Limitations: no limitations History of Present Illness ED Provider: Dr. Welch HPI narrative: Patient with ventral supra umbilical hernia that keeps popping in and out Onset (ago): week(s) Severity: mild Pain Consistency: intermittent Related Data Previous Rx's ?Medication ?Instructions ?Recorded albuterol sulfate 90 mcg/actuation 2 puff inhalation Q4-6H PRN 08/27/22 aerosol inhaler shortness of breath or wheezing #8.5 grams albuterol sulfate 90 mcg/actuation 2 puff inhalation Q4-6H PRN 08/04/23 aerosol inhaler (ProAir HFA) shortness of breath or wheezing #8.5 grams cetirizine 10 mg tablet 10 mg PO DAILY PRN allergy 10/10/23 symptoms #30 tabs fluticasone propionate 50 1 spray intranasal DAILY PRN 10/10/23 mcg/actuation nasal allergy symptoms #16 grams spray,suspension hydrocodone 5 mg-acetaminophen 325 1 tab PO Q4-6H PRN pain #30 tabs 03/31/24 mg tablet Allergies Allergy/AdvReac Type Severity Reaction Status Date / Time No Known Allergies Allergy Verified 03/31/24 08:49 Review of Systems Review of Systems: Yes all other systems are reviewed and are negative Neurologic: Denies Sensory deficit (Neuro) PMFSH Past Medical History Medical History Encounter for supervision of other normal , second trimester Asthma Surgical History H/O eye surgery Family History Family History Mother Diabetes HTN (hypertension) Father Asthma Maternal Grandmother Diabetes Bone cancer Social History Social History Household Members: Significant Other Household Members Other:: Boyfriend's family Housing: House Alcohol intake: never Patient Tobacco Use Status: Never used Tobacco Current occupational status: unemployed Current occupation: left hand dominant Sexual orientation: Straight/Heterosexual Gender identity: Female Physical Exam ED Vital Signs: Vital Signs - 24 hr 03/02/24 00:50 03/02/24 04:59 Temperature 97.2 F 97.2 F Pulse Rate 86 80 Respiratory Rate 20 16 Blood Pressure 117/67 147/83 H Pulse Oximetry 99 98 Oxygen Delivery Method Room Air Room Air BMI result Body Mass Index 38.7 Const General: healthy appearing Nutritional Appearance: obese Orientation/consciousness: oriented to person and patient oriented x3 Limitations: no limitations HENMT Head: Yes normal to inspection Ears: external ears normal General nose exam: Normal external nose present Mouth: Normal oral and palatal mucosa present and oropharynx normal Throat: Yes posterior oropharynx normal Eyes General: appearance normal, both eyes and all related structures Neck Neck: Yes normal visual inspection Chest Chest palpation & inspection: normal inspection of the chest Resp Auscultation: clear to auscultation bilaterally Cardio Jugular venous distension: no JVD Rate: regular rate Rhythm: regular rhythm Heart sounds: S1 normal heart sound present and S2 normal heart sound present GI Other: patient with a small ventral defect supra umbilical not incarcerated Palpation (GI): Soft to palpation Auscultation: normal bowel sounds General: Yes no CVA tenderness Back/Spine/Pelvis Back: no CVA tenderness Skin General skin exam: no rashes or lesions noted Neuro General: oriented to person and patient oriented x3 Cranial nerves: Yes CN's II-XII intact bilaterally Motor exam (neuro): 5/5 motor strength present throughout Sensory Exam: No Sensory deficit (Neuro) Extrem General: Yes normal to inspection Psych Appearance: grossly normal Course Reevaluation(s) Reevaluation #1: No acute incarceration will refer to Dr. Alba Time: 07:11 Medical Decision Making Differential Diagnosis Differential Diagnoses: The differential diagnosis associated with the presentation includes (incarcerated hernia, ventral hernia, abdominal pain) Tests considered The following testing was considered but not selected: Considered getting CT of abdomen but no incarcerated hernia, soft abdomen, good bowel sounds Discharge Plan Discharge Clinical Impression: Ventral hernia Patient Disposition: Home, Self-Care Instructions: Ventral Hernia (ED) Prescriptions: No Action albuterol sulfate 90 mcg/actuation HFA aerosol inhaler 2 puff inhalation Q4-6H PRN (Reason: shortness of breath or wheezing) Qty: 8.5 0RF albuterol sulfate [ProAir HFA] 90 mcg/actuation HFA aerosol inhaler 2 puff inhalation Q4-6H PRN (Reason: shortness of breath or wheezing) Qty: 8.5 0RF cetirizine 10 mg tablet 10 mg PO DAILY PRN (Reason: allergy symptoms) Qty: 30 0RF fluticasone propionate 50 mcg/actuation spray,suspension 1 spray intranasal DAILY PRN (Reason: allergy symptoms) Qty: 16 1RF Rx Instructions: administer into each nostril hydrocodone-acetaminophen 5-325 mg tablet 1 tab PO Q4-6H PRN (Reason: pain) Qty: 30 0RF Rx Instructions: Partial Fill upon patient request. Referrals: Warner Tena MD [Physician] - 1 week Interventions: ED Discharge Assessment Last Done: 03/02/24 07:34 Discharge Date/Time: 03/02/24 07:45 Print Language: [place]
[2024-03-02 07:26] VITALS: BP 128/72; PULSE 77; RESP 16; TEMP 36.9; O2SAT 98
[2024-03-02 07:34] VITALS: BP 128/72; PULSE 77; RESP 16; TEMP 36.9; O2SAT 98
== END 2024-03-02 07:45 | disposition home or self-care (01) ==
LOC: HO.ED 07:21
PROVIDERS: Emergency Provider Emergency Medicine
DX: K43.9 Ventral hernia without obstruction or gangrene (principal); K42.9 Umbilical hernia without obstruction or gangrene; J45.909 Unspecified asthma, uncomplicated; Z79.899 Other long term (current) drug therapy
CPT/HCPCS: 99282; 99283

== ENCOUNTER 2024-03-09 08:33 | Outpatient (AMB) | payer OTHER, SELFPAY ==
--- NOTE | 2024-03-09 08:34 | A.OFFVIS_ITS ---
Vital Signs 03/09/24 08:40 Height 5 ft 3 in Weight 220 lb BMI 39.0 BP 129/73 Blood Pressure Location Rt brachial Position Sitting Pulse 81 Intake Visit Reasons: Umbilical hernia Intake Note: Patient referred after ER visit for umbilical hernia. Patient c/o: pain on mid abd X2wks. ER: 03-02-24. [employer] Required: No Accompanied by: spouse Wilbert Allergies No Known Allergies Allergy (Verified 03/09/24 08:38) HPI Comments Details: Patient is recently . She presents here with her significant other and baby. She has had a several week history of symptomatic supraumbilical ventral hernia. He is increasing in size, and more bothersome. She would like to have repaired. Patient otherwise has regular bowel habits. She has no other GI issues or complaints. Chart was reviewed and patient evaluated [facility] Medical History Encounter for supervision of other normal , second trimester Asthma Surgical History H/O eye surgery Family History Mother Diabetes HTN (hypertension) Father Asthma Maternal Grandmother Diabetes Bone cancer Social History Household Members: Significant Other Household Members Other:: Boyfriend's family Housing: House Alcohol intake: never Patient Tobacco Use Status: Never used Tobacco Current occupational status: unemployed Current occupation: left hand dominant Sexual orientation: Straight/Heterosexual Gender identity: Female Female Reproductive History Menstrual Age of Menarche: 10 Physical Exam Vital Signs: Last Vital Signs Pulse 81 03/09/24 08:40 BP 129/73 03/09/24 08:40 BMI result Body Mass Index 39.0 Chest Other: Chest breath sounds bilaterally, HS 1 in 2 GI Other: abdominal wall. Patient was examined both supine and standing with Valsalva. Bilateral groin exam negative. Umbilicus within normal limits. A proximally 2 cm supraumbilical irreducible/incarcerated ventral hernia. Abdomen otherwise benign Assessment & Plan Assessment & Plan (1) Incarcerated ventral hernia: Code(s): K43.6 - Other and unspecified ventral hernia with obstruction, without gangrene Category: Surgical Plan Risks, benefits, alternatives of open repair of supraumbilical incarcerated ventral hernia with mesh were reviewed with the patient and included but not limited to bleeding, infection, recurrence, numbness, pain, scarring, bowel injury and the patient wished to proceed. All questions answered. Arrangements were made for this. Coding Level of Care Code New Pt Level 5 (31152) Diagnoses Incarcerated ventral hernia K43.6
[2024-03-09 08:40] VITALS: BP 129/73; PULSE 81; BMI 39.0
== END 2024-03-09 08:47 | disposition home or self-care (01) ==
PROVIDERS: Visit Provider Surgery
DX: K43.6 Other and unspecified ventral hernia with obstruction, without gangrene (principal)
CPT/HCPCS: 99205

== ENCOUNTER → 2024-03-09 08:33 | Outpatient (BNVA) | payer OTHER, SELFPAY | PROVIDERS: Visit Provider Surgery | DX: K43.6 Other and unspecified ventral hernia with obstruction, without gangrene (principal) | CPT/HCPCS: 99202 ==

== ENCOUNTER 2024-03-31 08:25 | Day surgery (SDC) | payer OTHER, SELFPAY ==
[2024-03-29 08:04] VITALS: BMI 39.0
--- NOTE | 2024-03-30 07:44 | MHC.SHP ---
Pre-Procedural Eval Section A - 24 Hr Update-Section A only Date of Service: 03/31/24 The patient is an INPATIENT: No Changes since office visit: No Cold of Flu in the past 2 weeks, No New Medical Problems, No Changes in Medication and No Patient answered all questions Section B - Complete if H&P > 30 days Chief Complaint: Other and unspecified ventral hernia with obstruct Allergies: Allergies Allergy/AdvReac Type Severity Reaction Status Date / Time No Known Allergies Allergy Verified 03/09/24 08:38 Plan I have reviewed the history and physical and performed a pertinent physical examination on my patient. No changes have occurred unless specified. Time Spent With Patient Time: Total time managing care of this patient today ____ minutes.
--- NOTE | 2024-03-30 08:28 | HO.ANESPROP2 ---
HPI - Anesthesia Eval Consult details Narrative: 18yo F for Incarcerated supraumbilical Ventral Hernia with mesh Recent PMFSH Active Problems Active Problems: All Active Problems Incarcerated ventral hernia (Acute) COVID-19 (Acute) Encounter for supervision of other normal , second trimester (Acute) Abnormal glucose in , antepartum (Acute) Early stage of (Acute) Crushing injury of right index finger (Acute) Finger numbness (Acute) Past Medical History Medical History Encounter for supervision of other normal , second trimester Asthma Family History Family History Mother Diabetes HTN (hypertension) Father Asthma Maternal Grandmother Diabetes Bone cancer Surgical History Surgical History (Updated 04/12/24 @ 09:02 by Randy Vera MD) Incarcerated ventral hernia (03/31/24) H/O eye surgery Social History Social History Household Members: Significant Other Household Members Other:: Boyfriend's family Housing: House Alcohol intake: never Patient Tobacco Use Status: Never used Tobacco Current occupational status: unemployed Current occupation: left hand dominant Sexual orientation: Straight/Heterosexual Gender identity: Female Meds Allergies Allergy/AdvReac Type Severity Reaction Status Date / Time No Known Allergies Allergy Verified 04/11/24 11:54 Exam Height,Weight and Vital Signs: Height 5 ft 3 in Weight 99.79 kg Assessment and Plan Assessment Anesthesia Assessment: Chart Reviewed
[2024-03-31] VITALS (11 sets, daily range): BP systolic 120–135; BP diastolic 72–86; PULSE 71–88; RESP 12–18; TEMP 36.2–36.4; O2SAT 96–98; BMI 39.0
--- NOTE | 2024-03-31 07:50 | HO.ANESPROP2 ---
PMFSH Active Problems Active Problems: All Active Problems Incarcerated ventral hernia (Acute) COVID-19 (Acute) Encounter for supervision of other normal , second trimester (Acute) Abnormal glucose in , antepartum (Acute) Early stage of (Acute) Crushing injury of right index finger (Acute) Finger numbness (Acute) Past Medical History Medical History Encounter for supervision of other normal , second trimester Asthma Functional capacity: independent ambulation Patient : No Family History Family History Mother Diabetes HTN (hypertension) Father Asthma Maternal Grandmother Diabetes Bone cancer Family history of problems with anesthesia: No Surgical History Surgical History H/O eye surgery Social History Social History Household Members: Significant Other Household Members Other:: Boyfriend's family Housing: House Alcohol intake: never Patient Tobacco Use Status: Never used Tobacco Current occupational status: unemployed Current occupation: left hand dominant Sexual orientation: Straight/Heterosexual Gender identity: Female Meds Allergies Allergy/AdvReac Type Severity Reaction Status Date / Time No Known Allergies Allergy Verified 03/31/24 08:49 Exam Height,Weight and Vital Signs: Height 5 ft 3 in Weight 99.79 kg Airway Mallampati Class: III TM Dist: >3cm Neck ROM: Full Heart: RRR Lungs: CTA Assessment and Plan Assessment Anesthesia Assessment: Anesthesia Plan Discussed Final Anesthetic Review Family History of Problems with Anesthesia: No NPO: Yes ASA Class: II Final Preanesthetic Review: Meds/Allgs Chart Reviewed, Consent Obtained/Reviewed and Anes Risks/Benef Reviewed Patient Risk: Low Procedure Risk: Low Anesthetic Plan Anesthetic Plan: GA Disposition: Standard PACU
[2024-03-31 08:58] LABS: UPreg QC Valid YES; Urine Pregnancy NEGATIVE (NEGATIVE)
--- NOTE | 2024-03-31 12:16 | W.PM.OPN ---
Operative Note Operative Note Date of Service: 03/31/24 Narrative: Preoperative diagnosis: [] Incarcerated supraumbilical ventral hernia Postop diagnosis; the same Procedure [] open repair supraumbilical incarcerated ventral hernia with Bard mesh Blast Furnace Operator: [] Jameel Surgeon; Chuy Type of Anesthesia: [] General Indication for surgery: [] Very corpulent abdomen. Incarcerated supraumbilical ventral hernia with omental contents. Defect measured with a proximally 4 cm. Findings: [] Patient was to the operating room, placed on operative table in supine position, and after an adequate level of general anesthesia was induced, the patient's abdomen was prepped and draped in usual sterile fashion. Using a transverse incision over the premarked hernia, this carried down through skin, subcutaneous tissue, were large hernia sac incarcerated omental contents was identified. This was circumferentially dissected down the fascia and opened. Omental contents were reduced. Hernia sac was amputated using Bovie. Fascia of the defect was circumferentially cleared. The appropriate sized Bard mesh was placed in this defect and the superficial layer of the mesh was circumferentially sutured to the surrounding fascia using interrupted 0 Ethibond suture. At completion of the procedure, mesh was in good position with no evidence of any tension or gaps. Wound was irrigated, secured hemostasis. It was closed in the following manner; subcutaneous tissues were reapproximated using interrupted 3-0 Vicryl suture. Skin was closed using interrupted inverted dermal 3-0 Vicryl sutures followed by Steri-Strips and sterile dressings. Wound was infiltrated 0.5% Marcaine at completion. Sponge, needle, and instrument counts were reported correct. Patient tolerated the procedure well and emerged from anesthesia stable condition. EBL minimal
== END 2024-03-31 13:45 | disposition home or self-care (01) ==
PROVIDERS: Nurse Practitioner; Visit Provider Surgery
PROC: (CPT 49594; principal; 2024-03-31 10:30)
DX: K43.6 Other and unspecified ventral hernia with obstruction, without gangrene (principal); E65 Localized adiposity; J45.909 Unspecified asthma, uncomplicated; Z79.899 Other long term (current) drug therapy; Z56.0 Unemployment, unspecified
CPT/HCPCS: 49594; 81025; C1781; J0665; J0690; J1100; J2250; J2405; J2704; J3010

== ENCOUNTER → 2024-03-31 08:25 | Outpatient (BNV) | payer OTHER, SELFPAY | PROVIDERS: Visit Provider Surgery | DX: K43.6 Other and unspecified ventral hernia with obstruction, without gangrene (principal) | CPT/HCPCS: 49594 ==

== ENCOUNTER 2024-04-11 11:42 | Outpatient (AMB) | payer OTHER, SELFPAY ==
--- NOTE | 2024-04-11 11:52 | A.OFFVIS_ITS ---
Intake Visit Reasons: S/P incarcerated supraumbilical hernia w/mesh Intake Note: Patient here s/p incarcerated supra umbilical ventral hernia w/mesh. Reports incisions healing well. Patient c/o:no concerns. No longer taking rx pain meds. SX: 03-31-2024. 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 She is doing well. She is tolerating her diet. He is having regular bowel habits. S he is minimal incisional discomfort. She is increasing her activity level. [facility] Medical History Encounter for supervision of other normal , second trimester Asthma Surgical History (Updated 04/12/24 @ 09:02 by Randy Vera MD) Incarcerated ventral hernia (03/31/24) H/O eye surgery Family History Mother Diabetes HTN (hypertension) Father Asthma Maternal Grandmother Diabetes Bone cancer Social History Household Members: Significant Other Household Members Other:: Boyfriend's family Housing: House Alcohol intake: never Patient Tobacco Use Status: Never used Tobacco Current occupational status: unemployed Current occupation: left hand dominant Sexual orientation: Straight/Heterosexual Gender identity: Female Female Reproductive History Menstrual Age of Menarche: 10 Physical Exam GI Other: Abdomen is soft. Wound clean dry and intact healing very well. Small seroma which will be treated conservatively. Assessment & Plan Assessment & Plan (1) Postop check: Code(s): Z09 - Encounter for follow-up examination after completed treatment for conditions other than malignant neoplasm Category: Surgical (2) Incarcerated ventral hernia: Onset Date: 03/31/24 Comment: supraumbilical ventral hernia w/mesh Dr. Chuy Padilla Code(s): K43.6 - Other and unspecified ventral hernia with obstruction, without gangrene Category: Surgical Plan Patient has been given local instructions including avoiding strenuous activities for next 4-6 weeks. All questions answered. Patient will otherwise follow-up p.r.n.. Coding Level of Care Code Global (06934) Diagnoses Postop check Z09 Incarcerated ventral hernia K43.6
== END 2024-04-11 11:51 | disposition home or self-care (01) ==
PROVIDERS: Visit Provider Surgery
DX: Z09 Encounter for follow-up examination after completed treatment for conditions other than malignant neoplasm (principal); K43.6 Other and unspecified ventral hernia with obstruction, without gangrene
CPT/HCPCS: 99212

== ENCOUNTER → 2024-04-11 11:42 | Outpatient (BNVA) | payer OTHER, SELFPAY | PROVIDERS: Visit Provider Surgery | DX: Z09 Encounter for follow-up examination after completed treatment for conditions other than malignant neoplasm (principal); Z87.19 Personal history of other diseases of the digestive system | CPT/HCPCS: 99212 ==

== ENCOUNTER 2024-04-25 08:01 | Outpatient (AMB) | payer OTHER, SELFPAY ==
--- NOTE | 2024-04-25 08:05 | A.OFFVIS_ITS ---
Intake Visit Reasons: s/p umbilical hernia ? seroma Intake Note: Patient was seen on 04-11-24 for post-op supraumbilical hernia. Patient c/o: painful seroma on abdomen. Rn Postpartum Required: No Accompanied by: Spouse Allergies No Known Allergies Allergy (Verified 04/25/24 08:05) HPI Comments Details: Patient presents with her and maybe for follow-up. She is concerned that she may have a seroma. In the meantime, patient was tolerating a diet. Having regular bowel habits. She is increasing her activity level. She has no other GI issues or complaints. [facility] Medical History Encounter for supervision of other normal , second trimester Asthma Surgical History (Updated 04/12/24 @ 09:02 by Randy Vera MD) Incarcerated ventral hernia (03/31/24) H/O eye surgery Family History Mother Diabetes HTN (hypertension) Father Asthma Maternal Grandmother Diabetes Bone cancer Social History Household Members: Significant Other Household Members Other:: Boyfriend's family Housing: House Alcohol intake: never Patient Tobacco Use Status: Never used Tobacco Current occupational status: unemployed Current occupation: left hand dominant Sexual orientation: Straight/Heterosexual Gender identity: Female Female Reproductive History Menstrual Age of Menarche: 10 Physical Exam GI Other: Patient was examined both supine and standing with Valsalva. Incision clean dry and intact. No evidence of any recurrence or infection. No obvious seroma demonstrated. Assessment & Plan Assessment & Plan (1) Postop check: Code(s): Z09 - Encounter for follow-up examination after completed treatment for conditions other than malignant neoplasm Category: Surgical Plan At present, we will treat the patient conservatively. No need for any seroma aspiration at this time. Patient has been given local instructions, and will follow-up p.r.n.. All questions answered Coding Level of Care Code Global (02959) Diagnoses Postop check Z09
== END 2024-04-25 08:13 | disposition home or self-care (01) ==
PROVIDERS: Visit Provider Surgery
DX: L76.32 Postprocedural hematoma of skin and subcutaneous tissue following other procedure (principal); Z09 Encounter for follow-up examination after completed treatment for conditions other than malignant neoplasm
CPT/HCPCS: 99213

== ENCOUNTER → 2024-04-25 08:01 | Outpatient (BNVA) | payer OTHER, SELFPAY | PROVIDERS: Visit Provider Surgery | DX: Z09 Encounter for follow-up examination after completed treatment for conditions other than malignant neoplasm (principal); Z98.890 Other specified postprocedural states | CPT/HCPCS: 99212 ==

== ENCOUNTER 2024-08-10 14:47 | Outpatient (REF) | payer OTHER, SELFPAY ==
[2024-08-10 17:01] LABS: Influenza A PCR NEGATIVE (Negative); Influenza B PCR NEGATIVE (Negative); Resp Syncy Virus RNA Qual PCR NEGATIVE (Negative); SARS COV2 PCR INHOUSE NEGATIVE (Negative)
== END 2024-08-10 14:48 | disposition home or self-care (01) ==
LOC: HO.LAB 14:47
PROVIDERS: Visit Provider Physician Assistant
DX: H66.001 Acute suppurative otitis media without spontaneous rupture of ear drum, right ear (principal); Z13.9 Encounter for screening, unspecified
CPT/HCPCS: 0241U; 87880; 99202

== ENCOUNTER 2024-08-10 14:47 | Outpatient (AMB) | payer OTHER, SELFPAY ==
[2024-08-10 14:49] VITALS: BP 130/80; PULSE 83; TEMP 36.7; O2SAT 98
--- NOTE | 2024-08-10 14:49 | MHC.OFFWIV ---
Intake Vital Signs 08/10/24 14:49 Height 5 ft 3 in BP 130/80 Blood Pressure Location Rt brachial Position Sitting Pulse 83 Pulse Source Pulse Oximeter Temp 98.1 F Temp Source Oral Pulse Oximetry (%) 98 Intake Visit Reasons: EP-rt ear pain, sore throat, cough Intake Note: pt is here for right ear pain, sore throat and cough Patient Tobacco Use Status: Never used Tobacco Allergies No Known Allergies Allergy (Verified 08/10/24 14:49) Do you need a note to return to daycare/school/sports/work: No HPI HPI Comments History of Present Illness Details Patient is a 18-year-old female complaining of right ear pain, cough and a sore throat for the last few days. She states she was coughing today and she felt her right ear pop and had a sudden onset of pain and states things sound muffled. She tells me she has some nasal congestion and has been blowing her nose a lot lately. She denies any sick contacts. She did not test for COVID at home. She has not taken any medications to make herself feel better. She denies any shortness of breath or fevers and does tell me she has a history of asthma. [facility] Medical History (Updated 08/10/24 @ 15:09 by Noa Sierra PA-C) Encounter for supervision of other normal , second trimester Asthma Surgical History (Updated 04/12/24 @ 09:02 by Randy Vera MD) Incarcerated ventral hernia (03/31/24) H/O eye surgery Family History Mother Diabetes HTN (hypertension) Father Asthma Maternal Grandmother Diabetes Bone cancer Social History Household Members: Significant Other Household Members Other:: Boyfriend's family Housing: House Alcohol intake: never Patient Tobacco Use Status: Never used Tobacco Current occupational status: unemployed Current occupation: left hand dominant Sexual orientation: Straight/Heterosexual Gender identity: Female Female Reproductive History Menstrual Age of Menarche: 10 Review of Systems Const All systems reviewed & are unremarkable except as noted in HPI and below Physical Exam Vital Signs: Last Vital Signs Temp 98.1 F 08/10/24 14:49 Pulse 83 08/10/24 14:49 BP 130/80 08/10/24 14:49 Pulse Ox 98 08/10/24 14:49 Const General: cooperative, healthy appearing, comfortable and no acute distress Orientation/consciousness: patient oriented x3 Limitations: no limitations HEENT Head: Yes normal to inspection Ears: hearing grossly normal bilaterally, external ears normal, TM normal on the left, EAC's normal, mastoids normal and unable to visualize TM (What I could visualize was very erythematous and dark) on the right General nose exam: Normal external nose present, Normal nares present and No nasal discharge present Face and sinus: Yes normal facial exam and Yes sinuses nontender Mouth: Normal oral and palatal mucosa present and moist mucous membranes Throat: Yes tonsils normal, Yes uvula midline and Yes posterior oropharynx abnormal (Erythema) Eyes General: appearance normal, both eyes and all related structures Neck Neck: Yes normal visual inspection Resp Effort & Inspection: normal respiratory effort, able to speak in complete sentences, no respiratory distress, not tachypneic, no tripod positioning and no use of accessory muscles Skin General skin exam: no rashes or lesions noted Neuro General: patient oriented x3 Extrem General: Yes normal to inspection and Yes no clubbing, cyanosis or edema Results AMB Rapid Strep AMB Rapid Strep Negative Last Edit by Ravinder Contreras CMA on 08/10/24 14:59 Results Reviewed Results Reviewed: Laboratory Last Values Strep Scn Rapid Clinic Negative 08/10/24 14:59 Assessment & Plan Assessment & Plan (1) Otitis media: Code(s): H66.90 - Otitis media, unspecified, unspecified ear Qualifiers: Otitis media type: suppurative Chronicity: acute Laterality: right Recurrence: non-recurrent Spontaneous tympanic membrane rupture: without spontaneous rupture Qualified Code(s): H66.001 - Acute suppurative otitis media without spontaneous rupture of ear drum, right ear Plan: Rapid strep negative in office, sent flu COVID and RSV testing. Treating right ear for infection as I could not visualize the entire tympanic membrane due to her anatomy and I do not want to give her any drops Plan See above Orders: Orders SARS-CoV2/FLU/RSV Today H66.90 - Otitis media, unspecified, unspecified ear AMB Rapid Strep Screen Today Z13.9 - Encounter for screening, unspecified Medications: New amoxicillin 875 mg PO Q12H 10 tabs 0RF Coding Level of Care Code New Pt Level 3 (96361) Diagnoses Non-recurrent acute suppurative otitis media of right ear without spontaneous rupture of tympanic membrane H66.001 Otitis media type: suppurative Chronicity: acute Laterality: right Recurrence: non-recurrent Spontaneous tympanic membrane rupture: without spontaneous rupture
== END 2024-08-10 15:08 | disposition home or self-care (01) ==
PROVIDERS: Visit Provider Physician Assistant
DX: H66.001 Acute suppurative otitis media without spontaneous rupture of ear drum, right ear (principal); Z13.9 Encounter for screening, unspecified

== ENCOUNTER 2024-08-24 11:39 | Outpatient (AMB) | payer OTHER, SELFPAY ==
--- NOTE | 2024-08-24 11:45 | MHC.OFFWIV ---
Intake Vital Signs 08/24/24 11:46 Height 5 ft 3 in Weight 237 lb BMI 42.0 BP 130/80 Blood Pressure Location Rt brachial Position Sitting Pulse 98 Pulse Source Pulse Oximeter Temp 97.5 F Temp Source Oral Pulse Oximetry (%) 98 Intake Visit Reasons: EP-sore throat, rt ear hearing problem Intake Note: pt is here for sore throat, right ear pain Patient Tobacco Use Status: Never used Tobacco Allergies No Known Allergies Allergy (Verified 08/24/24 11:46) Do you need a note to return to daycare/school/sports/work: No HPI HPI Comments History of Present Illness Details Patient is a 18-year-old female complaining of continued right ear ringing and a productive cough with green and yellow mucus for the last week. She did come this clinic on August 10 where she was diagnosed with otitis media of the right ear was given amoxicillin and completed her treatment. She denies any ear pain or fevers. She tells me it is difficult and painful to swallow. She did test negative for strep throat at her last visit on August 10. [facility] Medical History (Updated 08/24/24 @ 12:02 by Noa Sierra PA-C) Encounter for supervision of other normal , second trimester Asthma Surgical History (Updated 04/12/24 @ 09:02 by Randy Vera MD) Incarcerated ventral hernia (03/31/24) H/O eye surgery Family History Mother Diabetes HTN (hypertension) Father Asthma Maternal Grandmother Diabetes Bone cancer Social History Household Members: Significant Other Household Members Other:: Boyfriend's family Housing: House Alcohol intake: never Patient Tobacco Use Status: Never used Tobacco Current occupational status: unemployed Current occupation: left hand dominant Sexual orientation: Straight/Heterosexual Gender identity: Female Female Reproductive History Menstrual Age of Menarche: 10 Physical Exam Vital Signs: Last Vital Signs Temp 97.5 F 08/24/24 11:46 Pulse 98 08/24/24 11:46 BP 130/80 08/24/24 11:46 Pulse Ox 98 08/24/24 11:46 BMI result Body Mass Index 42.0 Const General: cooperative, healthy appearing, comfortable and no acute distress Orientation/consciousness: patient oriented x3 Limitations: no limitations HEENT Head: Yes normal to inspection Ears: hearing grossly normal bilaterally, external ears normal, TM's normal bilaterally, mastoids normal and Abnormal EAC present (Right ear) erythema and edema General nose exam: Normal external nose present, Normal nares present and No nasal discharge present Face and sinus: Yes normal facial exam and Yes sinuses nontender Mouth: Normal oral and palatal mucosa present and moist mucous membranes Throat: Yes tonsils normal, Yes uvula midline, Yes posterior oropharynx abnormal (Erythema) and Yes cobblestoning Eyes General: appearance normal, both eyes and all related structures Neck Neck: Yes normal visual inspection Resp Effort & Inspection: normal respiratory effort, able to speak in complete sentences, no respiratory distress, not tachypneic, no tripod positioning and no use of accessory muscles Skin General skin exam: no rashes or lesions noted Neuro General: patient oriented x3 Extrem General: Yes normal to inspection and Yes no clubbing, cyanosis or edema Results AMB Rapid Strep AMB Rapid Strep Negative Last Edit by Ravinder Contreras CMA on 08/24/24 11:56 Assessment & Plan Assessment & Plan (1) Otitis externa of right ear: Code(s): H60.91 - Unspecified otitis externa, right ear Qualifiers: Chronicity: acute Otitis externa type: other infective Qualified Code(s): H60.391 - Other infective otitis externa, right ear Plan: Vital signs are stable, patient is well-appearing. Rapid strep was negative in office again today. However, I will send a throat culture. Patient did just finish a 5 day course of amoxicillin 875 mg Q12H. Recommended she use throat numbing spray, drink cool liquids such as popsicles, she can take ibuprofen for pain. She should also start taking an allergy pill. And I did send drops to her pharmacy for the otitis externa on the right ear Plan See above Orders: Orders AMB Rapid Strep Screen Today Z13.9 - Encounter for screening, unspecified Throat Culture Today J02.9 - Acute pharyngitis, unspecified Medications: New zwvurhnz-wzqrdrpxq-DR 3.5-10,000-1 mg/mL-unit/mL-% 4 drps otic (ear) right QID 7 days 10 mL 0RF Coding Level of Care Code New Pt Level 3 (43965) Diagnoses Other infective acute otitis externa of right ear H60.391 Chronicity: acute Otitis externa type: other infective
[2024-08-24 11:46] VITALS: BP 130/80; PULSE 98; TEMP 36.4; O2SAT 98; BMI 42.0
== END 2024-08-24 12:16 | disposition home or self-care (01) ==
PROVIDERS: Visit Provider Physician Assistant
DX: H60.391 Other infective otitis externa, right ear (principal); J02.9 Acute pharyngitis, unspecified

== ENCOUNTER 2024-08-24 11:39 | Outpatient (REF) | payer OTHER, SELFPAY | END 2024-08-24 11:40 | disposition home or self-care (01) | LOC: HO.LNP 11:39 | PROVIDERS: Visit Provider Physician Assistant | DX: H60.391 Other infective otitis externa, right ear (principal); J02.9 Acute pharyngitis, unspecified | CPT/HCPCS: 87070; 87880; 99212 ==

== ENCOUNTER 2024-10-28 14:33 | Outpatient (REF) | payer OTHER, SELFPAY | END 2024-10-28 14:34 | disposition home or self-care (01) | LOC: HO.LAB 14:33 | PROVIDERS: Visit Provider Physician Assistant | DX: N30.00 Acute cystitis without hematuria (principal) | CPT/HCPCS: 81003; 81025; 99212 ==

== ENCOUNTER 2024-10-28 14:33 | Outpatient (AMB) | payer OTHER, SELFPAY ==
[2024-10-28 15:01] VITALS: BP 110/80; PULSE 96; TEMP 36.4; O2SAT 98; BMI 41.1
--- NOTE | 2024-10-28 15:01 | MHC.OFFWIV ---
Intake Vital Signs 10/28/24 15:01 Height 5 ft 3 in Weight 232 lb BMI 41.1 BP 110/80 Blood Pressure Location Rt brachial Position Sitting Pulse 96 Pulse Source Pulse Oximeter Temp 97.5 F Temp Source Oral Pulse Oximetry (%) 98 Oxygen Delivery Method Room Air Intake Visit Reasons: EP-sharp pain under belly Intake Note: Patient here for sharp pain under belly that has been present for a couple of days. Patient Tobacco Use Status: Never used Tobacco Allergies No Known Allergies Allergy (Verified 10/28/24 15:13) Do you need a note to return to daycare/school/sports/work: No HPI HPI Comments History of Present Illness Details History of Present Illness - The patient is a 19-year-old female presenting with suprapubic pain. - Pain described as a pressure sensation during urination, worse with bladder voiding, sharp with certain movements. - Symptom onset a couple of days ago, negative urinalysis, no associated fever, low back pain, or hematuria. - Limited sexual activity, no external genital symptoms. - Amenorrhea noted since September post-discontinuation of control, with prior controlled use . - Discussion of possible testing due to menstrual irregularities. Physical Exam General: Cooperative, healthy appearing, comfortable, no acute distress and well developed Orientation: Patient oriented x3 Limitations: No limitations Head: Normal to inspection Ears: Hearing grossly normal bilaterally Nose: Normal external nose present Face and sinus: Normal facial exam Eyes: Appearance normal, both eyes and all related structures Neck: Normal visual inspection and Yes full ROM Respiratory: Normal respiratory effort and able to speak in complete sentences. GI: no TTP suprapubic area Skin: No rashes or lesions noted Neuro: Patient oriented x3 Extremities: Normal to inspection [facility] Medical History (Updated 10/28/24 @ 15:41 by Noa Sierra PA-C) Encounter for supervision of other normal , second trimester Asthma Surgical History (Updated 04/12/24 @ 09:02 by Randy Vera MD) Incarcerated ventral hernia (03/31/24) H/O eye surgery Family History Mother Diabetes HTN (hypertension) Father Asthma Maternal Grandmother Diabetes Bone cancer Social History Household Members: Significant Other Household Members Other:: Boyfriend's family Housing: House Alcohol intake: never Patient Tobacco Use Status: Never used Tobacco Current occupational status: unemployed Current occupation: left hand dominant Sexual orientation: Straight/Heterosexual Gender identity: Female Female Reproductive History Menstrual Age of Menarche: 10 Review of Systems Const All systems reviewed & are unremarkable except as noted in HPI and below Physical Exam Vital Signs: Last Vital Signs Temp 97.5 F 10/28/24 15:01 Pulse 96 10/28/24 15:01 BP 110/80 10/28/24 15:01 Pulse Ox 98 10/28/24 15:01 Oxygen Delivery Method Room Air 10/28/24 15:01 BMI result Body Mass Index 41.1 Results AMB Urinalysis, Automated UA Leukoctes 0 Nicole/uL Last Edit by CHAPARRITA Kunz on 10/28/24 15:24 UA Nitrite Negative Last Edit by Jennifer Raza CCM on 10/28/24 15:24 UA Urobilinogen 0.2 mg/dL Last Edit by Jennifer Raza CCM on 10/28/24 15:24 UA Protein 0 mg/dL Last Edit by Jennifer Raza CCM on 10/28/24 15:24 UA pH 6.0 Last Edit by Jennifer Raza CCM on 10/28/24 15:24 UA Blood 0 Ranulfo/uL Last Edit by Jennifer Raza CCM on 10/28/24 15:24 UA Specific [place] 1.030 Last Edit by CHAPARRITA Kunz on 10/28/24 15:24 UA Ketone Negative Last Edit by Jennifer Raza CCM on 10/28/24 15:24 UA Bilirubin 0 mg/dL Last Edit by Jennifer Raza CCM on 10/28/24 15:24 UA Glucose 0 mg/dL Last Edit by Jennifer Raza CCM on 10/28/24 15:24 AMB Test Urine AMB Test Urine Negative Last Edit by Jennifer Raza CCM on 10/28/24 15:46 Results Reviewed Results Reviewed: Laboratory Last Values Urine pH (Auto) 6.0 01/17/25 15:24 Specific [place] (Auto) 1.030 10/28/24 15:24 Urine Protein (Auto) 0 mg/dL 10/28/24 15:24 Glucose (UA)(Auto) 0 mg/dL 10/28/24 15:24 Urine Ketones (Auto) Negative 10/28/24 15:24 Urine Blood (Auto) 0 Ranulfo/uL 10/28/24 15:24 Urine Nitrite (Auto) Negative 10/28/24 15:24 Urine Bilirubin (Auto) 0 mg/dL 10/28/24 15:24 Urine Urobilinogen (Auto) 0.2 mg/dL 10/28/24 15:24 Leukocyte Esterase (Auto) 0 Nicole/uL 10/28/24 15:24 Assessment & Plan Assessment & Plan (1) UTI (urinary tract infection): Code(s): N39.0 - Urinary tract infection, site not specified Qualifiers: Hematuria presence: without hematuria Urinary tract infection type: acute cystitis Qualified Code(s): N30.00 - Acute cystitis without hematuria Plan Plan For the suspected urinary tract infection, empirical treatment with antibiotics was recommended based on the patient's symptoms, given the urinalysis results were negative. Urine culture was ordered but urine was discarded and this was not discovered before the patient left the office. A test was discussed due to the patient's amenorrhea since discontinuing control following usage. Urine test was negative today. The patient was advised to observe for symptom improvement and seek further evaluation if symptoms persist or worsen. Additionally, menstrual irregularities were noted, and further follow-up for potential causative factors was suggested if regular menstruation does not resume. Patient was informed and verbally consented to the use of an ambient scribe for clinic note documentation during this visit. Orders: Orders AMB HCG Urine Test Today Z32.02 - Encounter for test, result negative AMB Urinalysis Automated Today Z13.9 - Encounter for screening, unspecified Urine Culture Today N39.0 - Urinary tract infection, site not specified Medications: New cefuroxime axetil 500 mg PO Q12H 10 tabs 0RF Coding Level of Care Code Est Pt Level 3 (40249) Diagnoses Acute cystitis without hematuria N30.00 Hematuria presence: without hematuria Urinary tract infection type: acute cystitis
== END 2024-10-28 16:09 | disposition home or self-care (01) ==
PROVIDERS: Visit Provider Physician Assistant
DX: Z32.02 Encounter for pregnancy test, result negative (principal); Z13.9 Encounter for screening, unspecified; N30.00 Acute cystitis without hematuria